=== PATIENT | male | born 1985 | race Caucasian/White ===

== ENCOUNTER → 2017-01-30 | Outpatient (CLI) | payer OTHER | END | disposition home or self-care (01) | LOC: LABWHC1 09:56 | PROVIDERS: ATTEND Psychiatry & Neurology Neurology | DX: Z51.81 Encounter for therapeutic drug level monitoring (principal); G40.109 Localization-related (focal) (partial) symptomatic epilepsy and epileptic syndromes with simple partial seizures, not intractable, without status epilepticus | CPT/HCPCS: 36415; 80177 ==

== ENCOUNTER 2017-07-29 22:17 | Emergency (ER) | payer OTHER ==
[2017-07-29] MEDS ORDERED: SODIUM CHLORIDE 0.9% 1,000 ML IV STA ×2 (22:48)
[2017-07-29] MEDS ORDERED: DEXAMETHASONE SOD PHOSPHATE 10 MG/ML 1 ML VIAL IV STA (22:49)
[2017-07-29] MEDS ORDERED: KETOROLAC 30 MG/ML 1 ML VIAL IVP STA (22:49)
[2017-07-29] MEDS ORDERED: METOCLOPRAMIDE 5 MG/ML 2 ML VIAL IVP STA (22:49)
[2017-07-29 23:01] LABS: Basophils % (A) 0 %; CH 31.2; CHCM 34.4; Eosinophils # (A) 0.1 k/uL (0-0.7); Eosinophils % (A) 1 %; HCT 43.2 % (39.0-53.0); HDW 2.18; HGB 14.7 gm/dL (13.0-17.5); Luc # (Auto) 0.11; Luc % (Auto) 1; Lymphocytes # (A) 1.9 k/uL (1.0-4.8); Lymphocytes % (A) 23 %; MCHC 34.1 g/dL (31.0-37.0); Mean Platelet Volume 8.4; Monocytes # (A) 0.6 k/uL (0-1.0); Monocytes % (A) 7 %; Neutrophils # (A) 5.5 k/uL (1.3-7.7); Neutrophils % (A) 67 %; RBC 4.74 m/uL (4.30-5.90); RDW 13.3 % (11.5-15.5); WBC 8.2 k/uL (3.8-10.6); WBC (Perox) 8.56
[2017-07-29 23:09] LABS: ALT 38 U/L (21-72); AST 41 U/L (17-59); Alkaline Phosphatase 79 U/L (38-126); Anion Gap 9 mmol/L; Blood Urea Nitrogen 18 mg/dL (9-20); Calcium 8.8 mg/dL (8.4-10.2); Carbon Dioxide 29 mmol/L (22-30); Chloride 98 mmol/L (98-107); Glucose 113 mg/dL (74-99); Magnesium 1.8 mg/dL (1.6-2.3); Non-African American GFR(MDRD) >60 (>60 ml/min/1.73 sqM); Phosphorous 3.7 mg/dL (2.5-4.5); Potassium 3.9 mmol/L (3.5-5.1); Sodium 136 mmol/L (137-145); Total Bilirubin 0.9 mg/dL (0.2-1.3); Total Protein 7.4 g/dL (6.3-8.2)
--- NOTE | 2017-07-29 23:09 | ED ---
Seizure HPI - General Chief Complaint: Seizure Stated Complaint: Seizure Time Seen by Provider: 07/29/17 22:43 Source: EMS Mode of arrival: EMS Limitations: altered mental status - History of Present Illness Initial Comments: This 31-year-old white male presents by EMS with seizures. His parents are present and relate that they witnessed seizure at home. He apparently was taking his legs and trying to crawl around. They state that he was banging his head against the small. They threw a blanket over on him and he seemed to struggle with this plan For a while. The seizure apparently lasted approximately 30 minutes. He then had another seizure while in route and the paramedics gave him 5 mg of Versed. He does have a long history of seizures ever since childhood. His last seizure was approximately 3 months ago. He does take his Keppra daily and has not missed any doses. He states that he does not drink alcohol too heavily and his last drink was 2 days ago. He is currently complaining of a diffuse headache. He denies any other injuries or complaints or modifying factors. - Related Data Home Medications Medication Instructions Recorded Confirmed Aspirin 325 - 650 mg PO DAILY PRN 07/29/17 07/29/17 levETIRAcetam [Keppra] 500 mg PO Q12HR 07/29/17 07/29/17 Allergies Allergy/AdvReac Type Severity Reaction Status Date / Time No Known Allergies Allergy Verified 07/29/17 22:39 Review of Systems ROS Statement: Those systems with pertinent positive or pertinent negative responses have been documented in the HPI. ROS Other: All systems not noted in ROS Statement are negative. Past Medical History Past Medical History: Seizure Disorder History of Any Multi-Drug Resistant Organisms: None Reported Past Surgical History: Orthopedic Surgery Past Psychological History: No Psychological Hx Reported Smoking Status: Current every day smoker Past Alcohol Use History: Occasional Past Drug Use History: Marijuana General Exam - General Exam Comments Initial Comments: GENERAL: The patient is well nourished and well hydrated. VITAL SIGNS: Heart rate, blood pressure, respiratory rate reviewed as recorded in nurse's notes. EYES: Pupils are round and reactive. Extraocular movements are intact. No conjunctival / lid redness or swelling. ENT: No external evidence of injury, swelling, or ecchymosis. Airway is patent. Throat is clear. NECK: Nontender. No swelling or evidence of injury. No subcutaneous emphysema. Trachea is midline. No thyroid mass. HEART: Regular rate and rhythm. Good peripheral pulses. LUNGS/CHEST: Breath sounds clear and equal bilaterally. No rales, rhonchi, or wheezes. No ecchymosis, subcutaneous emphysema, or tenderness. ABDOMEN: Abdomen soft without tenderness. No palpable masses or organomegaly. No peritoneal signs. No abdominal wall swelling or ecchymosis. EXTREMITIES: No extremity tenderness. Normal muscle tone and function. No thoracolumbar tenderness. NEUROLOGIC: Sensation is grossly intact. Cranial nerve exam reveals face is symmetrical, tongue is midline, speech is clear. SKIN: No abrasions or ecchymosis is noted. No induration or masses noted. PSYCHIATRIC: Alert and oriented. Appropriate behavior and judgment. Limitations: altered mental status Course Vital Signs 07/29/17 22:18 Temperature 97.6 F Pulse Rate 90 Respiratory 14 Rate Blood Pressure 126/83 O2 Sat by Pulse 100 Oximetry Medical Decision Making - Medical Decision Making The patient was seen and examined. All diagnostics were reviewed. An IV is started and he is hydrated. The EKG shows a normal sinus rhythm at a rate of 93. There is evidence of an incomplete right bundle-branch block. There is a AK interval of 144, QRS duration of 110, and QTc interval 489. The patient receives some Decadron, Toradol, and Reglan for his headache. The laboratory is reviewed and does not show any acute process. His computed tomography scan of the brain does not show any acute processes. His headache is resolved on recheck. He is in no distress feels well enough to be discharged home. It appears this may have been a breakthrough seizure. It is felt as though he should call his neurologist within the next day for further recommendations and close follow-up. - Lab Data Result diagrams: 07/29/17 22:30 07/29/17 22:30 Lab Results 07/29/17 07/29/17 Range/Units 22:30 22:30 WBC 8.2 (3.8-10.6) k/uL RBC 4.74 (4.30-5.90) m/uL Hgb 14.7 (13.0-17.5) gm/dL Hct 43.2 (39.0-53.0) % MCV 91.0 (80.0-100.0) fL MCH 31.0 (25.0-35.0) pg MCHC 34.1 (31.0-37.0) g/dL RDW 13.3 (11.5-15.5) % Plt Count 203 (150-450) k/uL Neutrophils % 67 % Lymphocytes % 23 % Monocytes % 7 % Eosinophils % 1 % Basophils % 0 % Neutrophils # 5.5 (1.3-7.7) k/uL Lymphocytes # 1.9 (1.0-4.8) k/uL Monocytes # 0.6 (0-1.0) k/uL Eosinophils # 0.1 (0-0.7) k/uL Basophils # 0.0 (0-0.2) k/uL Sodium 136 L (137-145) mmol/L Potassium 3.9 (3.5-5.1) mmol/L Chloride 98 (98-107) mmol/L Carbon Dioxide 29 (22-30) mmol/L Anion Gap 9 mmol/L BUN 18 (9-20) mg/dL Creatinine 1.00 (0.66-1.25) mg/dL Est GFR (MDRD) Af Amer >60 (>60 ml/min/1.73 sqM) Est GFR (MDRD) Non-Af >60 (>60 ml/min/1.73 sqM) Glucose 113 H (74-99) mg/dL Calcium 8.8 (8.4-10.2) mg/dL Phosphorus 3.7 (2.5-4.5) mg/dL Magnesium 1.8 (1.6-2.3) mg/dL Total Bilirubin 0.9 (0.2-1.3) mg/dL AST 41 (17-59) U/L ALT 38 (21-72) U/L Alkaline Phosphatase 79 (38-126) U/L Total Protein 7.4 (6.3-8.2) g/dL Albumin 4.5 (3.5-5.0) g/dL Disposition Clinical Impression: Recurrent seizures, Head injury, Headache Disposition: HOME SELF-CARE Condition: Good Instructions: Recurrent Seizures in Adults (ED), Acute Headache (ED), Head Injury (ED) Referrals: Daniel Rothman MD [Primary Care Provider] - 1-2 days Susana Escudero MD [STAFF PHYSICIAN] - 1-2 days Time of Disposition: 00:23
--- NOTE | 2017-07-30 00:12 | CT ---
EXAM: CT Head Without Intravenous Contrast CLINICAL HISTORY: Reason: seizure activity TECHNIQUE: Axial computed tomography images of the head/brain without intravenous contrast. DLP is 1047.10 mGy-cm. This CT exam was performed using one or more of the following dose reduction techniques: automated exposure control, adjustment of the mA and/or kV according to patient size, and/or use of iterative reconstruction technique. COMPARISON: MRI of the brain dated 05/07/[address] of the head dated 12/29/2014 FINDINGS: Brain: Unremarkable. No hemorrhage. No significant white matter disease. No edema. Ventricles: Unremarkable. No ventriculomegaly. Bones/joints: Unremarkable. No acute fracture. Soft tissues: Unremarkable. Sinuses: Minimal mucosal thickening is again seen involving the right sphenoid sinus. Mastoid air cells: Unremarkable as visualized. No mastoid effusion. IMPRESSION: No acute findings.
[2017-07-30 00:32] VITALS: BP 109/56; PULSE 68; RESP 16; TEMP 97.9
== END 2017-07-30 00:31 | disposition home or self-care (01) ==
LOC: EC 22:17
DX: S09.90XA Unspecified injury of head, initial encounter (principal); G40.909 Epilepsy, unspecified, not intractable, without status epilepticus; I45.10 Unspecified right bundle-branch block; F17.200 Nicotine dependence, unspecified, uncomplicated; Z79.899 Other long term (current) drug therapy; W22.01XA Walked into wall, initial encounter; Y92.009 Unspecified place in unspecified non-institutional (private) residence as the place of occurrence of the external cause
CPT/HCPCS: 36415; 93005; 80053; 83735; 84100; 85025; 70450; 99285; 96374; 96375 ×2; 96361 ×2; J1100; J2765; J1885

== ENCOUNTER → 2018-09-02 | Outpatient (CLI) | payer OTHER ==
--- NOTE | 2018-09-02 11:37 | MR ---
EXAMINATION TYPE: MR brain wo con DATE OF EXAM: 09/02/2018 COMPARISON: 05/07/2016 HISTORY: Epilepsy T1-weighted sagittal, T2, FLAIR, and diffusion axial, and T2 coronal coronal views of the brain are s ubmitted. There is no evidence of acute ischemia. The ventricles, basal cisterns, and sulci overlying the conv exities are consistent with the patient's age. There is no mass effect. Craniocervical junction maintained. Sella turcica has a normal appearance. No cerebellopontine angle mass. Changes of chronic sinusitis. IMPRESSION: 1. No acute intracranial process. 2. Mild changes of chronic sinusitis.
== END | disposition home or self-care (01) ==
LOC: RADMRIMAIN 08:48
PROVIDERS: ATTEND Psychiatry & Neurology Neurology
DX: G40.109 Localization-related (focal) (partial) symptomatic epilepsy and epileptic syndromes with simple partial seizures, not intractable, without status epilepticus (principal); J32.9 Chronic sinusitis, unspecified
CPT/HCPCS: 70551

== ENCOUNTER → 2019-08-20 | Outpatient (CLI) | payer OTHER | END | disposition home or self-care (01) | LOC: LABWHC1 10:36 | PROVIDERS: ATTEND Psychiatry & Neurology Neurology | DX: G40.109 Localization-related (focal) (partial) symptomatic epilepsy and epileptic syndromes with simple partial seizures, not intractable, without status epilepticus (principal) | CPT/HCPCS: 36415; 80177 ==

== ENCOUNTER → 2019-10-01 | Outpatient (CLI) | payer OTHER | END | disposition home or self-care (01) | LOC: LABWHC1 10:38 | PROVIDERS: ATTEND Psychiatry & Neurology Neurology | DX: G40.109 Localization-related (focal) (partial) symptomatic epilepsy and epileptic syndromes with simple partial seizures, not intractable, without status epilepticus (principal) | CPT/HCPCS: 36415; 80177 ==

== ENCOUNTER 2019-12-17 19:36 | Emergency (ER) | payer OTHER ==
[2019-12-17 19:42] VITALS: TEMP 99.2
[2019-12-17 19:42] LABS: Glucose,Whole Blood 152 mg/dL (75-99)
[2019-12-17] MEDS ORDERED: LORazepam 2 MG/ML INJ IV STA (19:46)
[2019-12-17] MEDS ORDERED: SODIUM CHLORIDE 0.9% 1,000 ML IV STA (19:46)
--- NOTE | 2019-12-17 19:49 | ED ---
General Adult HPI - General Chief complaint: Seizure Stated complaint: Seizure Time Seen by Provider: 12/17/19 19:39 Source: patient, family, EMS, RN notes reviewed Mode of arrival: ambulatory Limitations: no limitations - History of Present Illness Initial comments: Patient is a pleasant 33-year-old male presenting to the emergency department with family for seizure. Patient did have seizure prior to arrival lasting less than 5 minutes. Patient denies any injury however does admit that he may have quite as. Urinated himself. Patient does get several seizures a year, last was August. Patient has been having seizures since approximately age 9. Patient states he feels fine at this time and has no complaints. - Related Data Home Medications Medication Instructions Recorded Confirmed Aspirin 325 - 650 mg PO DAILY PRN 07/29/17 07/29/17 levETIRAcetam [Keppra] 500 mg PO Q12HR 07/29/17 07/29/17 Allergies Allergy/AdvReac Type Severity Reaction Status Date / Time No Known Allergies Allergy Verified 12/17/19 19:43 Review of Systems ROS Statement: Those systems with pertinent positive or pertinent negative responses have been documented in the HPI. ROS Other: All systems not noted in ROS Statement are negative. Constitutional: Denies: fever Eyes: Denies: eye pain ENT: Denies: ear pain Respiratory: Denies: cough Cardiovascular: Denies: chest pain Endocrine: Denies: fatigue Gastrointestinal: Denies: abdominal pain Genitourinary: Denies: dysuria Musculoskeletal: Denies: back pain Skin: Denies: rash Neurological: Denies: headache, weakness, confusion Past Medical History Past Medical History: Seizure Disorder History of Any Multi-Drug Resistant Organisms: None Reported Past Surgical History: Orthopedic Surgery Past Psychological History: No Psychological Hx Reported Smoking Status: Current every day smoker Past Alcohol Use History: Occasional Past Drug Use History: Marijuana General Exam Limitations: no limitations General appearance: alert, in no apparent distress Head exam: Present: normocephalic Eye exam: Present: normal appearance, PERRL, EOMI ENT exam: Present: other (Anterior left tongue abrasion) Neck exam: Present: normal inspection. Absent: tenderness Respiratory exam: Present: normal lung sounds bilaterally Cardiovascular Exam: Present: regular rate, normal rhythm GI/Abdominal exam: Present: soft. Absent: tenderness Extremities exam: Present: normal inspection Neurological exam: Present: alert, CN II-XII intact. Absent: motor sensory deficit Expanded Neurological exam: Present: protecting the airway Speech: Present: fluid speech Cranial nerves: EOM's Intact: Normal Motor strength exam: RUE: 5, LUE: 5, RLE: 5, LLE: 5 Eye Response: (4) open spontaneously Motor Response: (6) obeys commands Verbal Response: (5) oriented Psychiatric exam: Present: normal affect, normal mood Skin exam: Present: normal color Course Vital Signs 12/17/19 12/17/19 19:39 20:42 Temperature 99.2 F Pulse Rate 103 H 90 Respiratory 20 20 Rate Blood Pressure 143/86 119/76 O2 Sat by Pulse 95 98 Oximetry EKG Findings - EKG Comments: EKG Findings:: Normal sinus rhythm 96. FL 138. QRS 112. QT 372. QTC 469. Normal axis. Incomplete right bundle branch block. No acute ST change. Medical Decision Making - Medical Decision Making Patient reevaluated, states he feels better, symptom-free. Patient requesting discharge home. - Lab Data Result diagrams: 12/17/19 19:51 12/17/19 19:51 Lab Results 12/17/19 12/17/19 12/17/19 Range/Units 19:40 19:51 19:51 WBC 8.5 (3.8-10.6) k/uL RBC 4.86 (4.30-5.90) m/uL Hgb 14.4 (13.0-17.5) gm/dL Hct 44.1 (39.0-53.0) % MCV 90.8 (80.0-100.0) fL MCH 29.7 (25.0-35.0) pg MCHC 32.7 (31.0-37.0) g/dL RDW 12.0 (11.5-15.5) % Plt Count 243 (150-450) k/uL Neutrophils % 61 % Lymphocytes % 32 % Monocytes % 5 % Eosinophils % 1 % Basophils % 1 % Neutrophils # 5.2 (1.3-7.7) k/uL Lymphocytes # 2.7 (1.0-4.8) k/uL Monocytes # 0.4 (0-1.0) k/uL Eosinophils # 0.0 (0-0.7) k/uL Basophils # 0.0 (0-0.2) k/uL Sodium 139 (137-145) mmol/L Potassium 3.8 (3.5-5.1) mmol/L Chloride 102 (98-107) mmol/L Carbon Dioxide 22 (22-30) mmol/L Anion Gap 15 mmol/L BUN 18 (9-20) mg/dL Creatinine 1.12 (0.66-1.25) mg/dL Est GFR (CKD-EPI)AfAm >90 (>60 ml/min/1.73 sqM) Est GFR (CKD-EPI)NonAf 86 (>60 ml/min/1.73 sqM) Glucose 158 H (74-99) mg/dL POC Glucose (mg/dL) 152 H (75-99) mg/dL POC Glu Facility Planner ID Maria De Jesus Paulino Calcium 8.9 (8.4-10.2) mg/dL Total Bilirubin 1.2 (0.2-1.3) mg/dL AST 39 (17-59) U/L ALT 27 (4-49) U/L Alkaline Phosphatase 73 (38-126) U/L Total Protein 8.0 (6.3-8.2) g/dL Albumin 4.9 (3.5-5.0) g/dL Serum Alcohol <10 mg/dL Influenza Type A RNA (Not Detectd) Influenza Type B (PCR) (Not Detectd) 12/17/19 Range/Units 19:51 WBC (3.8-10.6) k/uL RBC (4.30-5.90) m/uL Hgb (13.0-17.5) gm/dL Hct (39.0-53.0) % MCV (80.0-100.0) fL MCH (25.0-35.0) pg MCHC (31.0-37.0) g/dL RDW (11.5-15.5) % Plt Count (150-450) k/uL Neutrophils % % Lymphocytes % % Monocytes % % Eosinophils % % Basophils % % Neutrophils # (1.3-7.7) k/uL Lymphocytes # (1.0-4.8) k/uL Monocytes # (0-1.0) k/uL Eosinophils # (0-0.7) k/uL Basophils # (0-0.2) k/uL Sodium (137-145) mmol/L Potassium (3.5-5.1) mmol/L Chloride (98-107) mmol/L Carbon Dioxide (22-30) mmol/L Anion Gap mmol/L BUN (9-20) mg/dL Creatinine (0.66-1.25) mg/dL Est GFR (CKD-EPI)AfAm (>60 ml/min/1.73 sqM) Est GFR (CKD-EPI)NonAf (>60 ml/min/1.73 sqM) Glucose (74-99) mg/dL POC Glucose (mg/dL) (75-99) mg/dL POC Glu Facility Planner ID Calcium (8.4-10.2) mg/dL Total Bilirubin (0.2-1.3) mg/dL AST (17-59) U/L ALT (4-49) U/L Alkaline Phosphatase (38-126) U/L Total Protein (6.3-8.2) g/dL Albumin (3.5-5.0) g/dL Serum Alcohol mg/dL Influenza Type A RNA Not Detected (Not Detectd) Influenza Type B (PCR) Not Detected (Not Detectd) Disposition Clinical Impression: Generalized seizure Disposition: HOME SELF-CARE Condition: Stable Instructions (If sedation given, give patient instructions): Recurrent Seizures in Adults (ED) Additional Instructions: Please follow-up with your neurologist and primary care physician either tomorrow or beginning of the week. Return for recurrent seizures, worsening symptoms or other concerns. Please have your doctor check keppra level that was drawn today. Is patient prescribed a controlled substance at d/c from ED?: No Referrals: Susana Escudero MD [STAFF PHYSICIAN] - 1-2 days Jose Manuel Lujan [STAFF PHYSICIAN] - 1-2 days Daniel Rothman MD [STAFF PHYSICIAN] - 1-2 days Time of Disposition: 20:56
[2019-12-17 20:08] LABS: Basophils % (A) 1 %; Eosinophils % (A) 1 %; HCT 44.1 % (39.0-53.0); HGB 14.4 gm/dL (13.0-17.5); Lymphocytes # (A) 2.7 k/uL (1.0-4.8); Lymphocytes % (A) 32 %; MCH 29.7 pg (25.0-35.0); MCHC 32.7 g/dL (31.0-37.0); MCV 90.8 fL (80.0-100.0); Mean Platelet Volume 7.7; Monocytes # (A) 0.4 k/uL (0-1.0); Monocytes % (A) 5 %; Neutrophils # (A) 5.2 k/uL (1.3-7.7); Neutrophils % (A) 61 %; Platelet Count 243 k/uL (150-450); RBC 4.86 m/uL (4.30-5.90); WBC 8.5 k/uL (3.8-10.6)
[2019-12-17 20:13] LABS: Appearance,Urine Clear (Clear); Bilirubin,Urine Negative (Negative); Blood,Urine Small (Negative); Color,Urine Yellow; Glucose,Urine (UA) Negative (Negative); Ketones,Urine 1+ (Negative); Leukocyte Esterase,Urine Moderate (Negative); Mucus,Urine Rare /hpf; Nitrite,Urine Negative (Negative); PH, Urine 5.5 (5.0-8.0); Protein,Urine 1+ (Negative); RBC,Urine 3 /hpf (0-5); Urobilinogen,Urine <2.0 mg/dL (<2.0); WBC,Urine 35 /hpf (0-5)
[2019-12-17 20:17] LABS: ALT 27 U/L (4-49); AST 39 U/L (17-59); African American GFR (CKD) >90 (>60 ml/min/1.73 sqM); Albumin 4.9 g/dL (3.5-5.0); Alcohol <10 mg/dL; Alkaline Phosphatase 73 U/L (38-126); Anion Gap 15 mmol/L; Blood Urea Nitrogen 18 mg/dL (9-20); Calcium 8.9 mg/dL (8.4-10.2); Carbon Dioxide 22 mmol/L (22-30); Chloride 102 mmol/L (98-107); Glucose 158 mg/dL (74-99); Non-African American GFR(CKD) 86 (>60 ml/min/1.73 sqM); Potassium 3.8 mmol/L (3.5-5.1); Sodium 139 mmol/L (137-145); Total Bilirubin 1.2 mg/dL (0.2-1.3)
[2019-12-17] MEDS ORDERED: levETIRAcetam 500 MG TAB PO STA (20:55)
--- NOTE | 2019-12-17 20:59 | XR ---
EXAMINATION: XR chest 2V DATE AND TIME: 12/17/2019 8:37 PM CLINICAL INDICATION: PHH; seizure TECHNIQUE: Departmental protocol COMPARISON: 03/25/2014 FINDINGS: The lungs are clear. The pleural spaces are negative. The cardiac silhouette is not enlarged. The remainder of the mediastinal silhouette is unremarkable. The skeletal structures and soft tissues are negative for acute findings. IMPRESSION: NO ACUTE PROCESS.
[2019-12-17 21:02] VITALS: BP 118/84; PULSE 78; RESP 18
== END 2019-12-17 22:16 | disposition home or self-care (01) ==
LOC: EC 19:36
DX: G40.409 Other generalized epilepsy and epileptic syndromes, not intractable, without status epilepticus (principal); F17.200 Nicotine dependence, unspecified, uncomplicated; Z79.82 Long term (current) use of aspirin; Z79.899 Other long term (current) drug therapy
CPT/HCPCS: 36415; 93005; 80053; 80177; 85025; 81001; 87086; 87502; 71046; 99284; 96374; 96361; G0480; J2060; 80320

== ENCOUNTER → 2020-01-06 | Outpatient (CLI) | payer OTHER | END | disposition home or self-care (01) | LOC: LABWHC1 10:35 | PROVIDERS: ATTEND Psychiatry & Neurology Neurology | DX: G40.109 Localization-related (focal) (partial) symptomatic epilepsy and epileptic syndromes with simple partial seizures, not intractable, without status epilepticus (principal) | CPT/HCPCS: 36415; 80177 ==

== ENCOUNTER → 2020-09-08 | Outpatient (CLI) | payer OTHER | END | disposition home or self-care (01) | LOC: LABWHC1 13:46 | PROVIDERS: ATTEND Psychiatry & Neurology Neurology | DX: G40.109 Localization-related (focal) (partial) symptomatic epilepsy and epileptic syndromes with simple partial seizures, not intractable, without status epilepticus (principal) | CPT/HCPCS: 36415; 80177 ==

== ENCOUNTER → 2020-12-06 | Outpatient (CLI) | payer MEDICARE, OTHER | END | disposition home or self-care (01) | LOC: LABWHC1 09:49 | PROVIDERS: ATTEND Psychiatry & Neurology Neurology | DX: G40.109 Localization-related (focal) (partial) symptomatic epilepsy and epileptic syndromes with simple partial seizures, not intractable, without status epilepticus (principal) | CPT/HCPCS: 36415; 80177 ==

== ENCOUNTER 2021-01-05 02:03 | Emergency (ER) | payer MEDICARE, OTHER ==
[2021-01-05 02:12] VITALS: RESP 18
[2021-01-05 02:33] LABS: Glucose,Whole Blood 111 mg/dL (75-99)
[2021-01-05 02:59] LABS: Basophils % (A) 1 %; Eosinophils # (A) 0.2 k/uL (0-0.7); Eosinophils % (A) 3 %; HGB 15.1 gm/dL (13.0-17.5); Lymphocytes # (A) 1.9 k/uL (1.0-4.8); Lymphocytes % (A) 31 %; MCH 30.1 pg (25.0-35.0); MCHC 33.5 g/dL (31.0-37.0); Mean Platelet Volume 7.2; Monocytes # (A) 0.4 k/uL (0-1.0); Monocytes % (A) 6 %; Neutrophils # (A) 3.6 k/uL (1.3-7.7); Neutrophils % (A) 57 %; Platelet Count 223 k/uL (150-450); RDW 12.4 % (11.5-15.5); WBC 6.2 k/uL (3.8-10.6)
[2021-01-05 03:04] LABS: African American GFR (CKD) >90 (>60 ml/min/1.73 sqM); Anion Gap 8 mmol/L; Blood Urea Nitrogen 19 mg/dL (9-20); Calcium 8.9 mg/dL (8.4-10.2); Carbon Dioxide 30 mmol/L (22-30); Chloride 100 mmol/L (98-107); Glucose 124 mg/dL (74-99); Non-African American GFR(CKD) >90 (>60 ml/min/1.73 sqM); Potassium 3.9 mmol/L (3.5-5.1); Sodium 138 mmol/L (137-145)
[2021-01-05] MEDS ORDERED: ASPIRIN-ACET-CAFF 250-250-65MG 1 EACH TAB PO ONE (03:30)
[2021-01-05 03:33] VITALS: BP 127/85; PULSE 88; TEMP 98.6
--- NOTE | 2021-01-05 03:53 | ED ---
Seizure HPI - General Chief Complaint: Seizure Stated Complaint: seizure Time Seen by Provider: 01/05/21 02:30 Source: patient, EMS Mode of arrival: EMS Limitations: no limitations - History of Present Illness Initial Comments: This patient is a 35-year-old man who presents to be evaluated following a seizure. The patient does have known seizure disorder and is currently taking Keppra. He denies missing any doses of his medication. He comes today mainly for evaluation of his left brow to make sure that he does not need stitches. The patient reportedly rolled from the bed and struck the left side of his face when he fell. Patient denies headache. There is no neck pain. He does not have any neurologic symptoms and feels he is back at his baseline. The patient's does agree. Patient states that his last tetanus shot was probably about 3 years ago after a cat bite. MD Complaint: seizure -: minutes(s) Description of Episode: loss of consciousness, tonic-clonic movement -: second(s) Witnessed: yes - by bystander Trauma: Yes Seizure History: known seizure disorder Place: home Treatments Prior to Arrival: none - Related Data Home Medications Medication Instructions Recorded Confirmed Aspirin 325 - 650 mg PO DAILY PRN 07/29/17 07/29/17 levETIRAcetam [Keppra] 500 mg PO Q12HR 07/29/17 07/29/17 Allergies Allergy/AdvReac Type Severity Reaction Status Date / Time No Known Allergies Allergy Verified 12/17/19 19:43 Review of Systems ROS Statement: Those systems with pertinent positive or pertinent negative responses have been documented in the HPI. ROS Other: All systems not noted in ROS Statement are negative. Constitutional: Denies: fever, chills, weakness Eyes: Reports: as per HPI, eye pain. Denies: vision change ENT: Denies: hearing loss, epistaxis Respiratory: Denies: cough, dyspnea Cardiovascular: Denies: chest pain, palpitations, syncope Gastrointestinal: Denies: abdominal pain, vomiting, diarrhea Genitourinary: Denies: dysuria, hematuria Musculoskeletal: Denies: back pain, myalgia Skin: Denies: rash Neurological: Denies: headache, weakness, numbness, paresthesias Hematological/Lymphatic: Denies: easy bleeding Past Medical History Past Medical History: Seizure Disorder History of Any Multi-Drug Resistant Organisms: None Reported Past Surgical History: Orthopedic Surgery Past Psychological History: No Psychological Hx Reported Smoking Status: Current every day smoker Past Alcohol Use History: Occasional Past Drug Use History: Marijuana General Exam Limitations: no limitations General appearance: alert, in no apparent distress Head exam: Present: normocephalic Eye exam: Present: normal appearance, PERRL, EOMI, periorbital swelling, other (Patient has an approximately 2-3 mm laceration to the left upper eyelid which is well approximated.). Absent: scleral icterus, conjunctival injection, nystagmus ENT exam: Present: normal oropharynx Neck exam: Present: normal inspection, full ROM. Absent: tenderness, meningismus Respiratory exam: Present: normal lung sounds bilaterally. Absent: respiratory distress, wheezes, rales, rhonchi, stridor, chest wall tenderness Cardiovascular Exam: Present: regular rate, normal rhythm, normal heart sounds. Absent: systolic murmur, diastolic murmur, rubs, gallop GI/Abdominal exam: Present: soft. Absent: distended, tenderness, guarding, rebound, rigid, mass Extremities exam: Present: normal inspection, normal capillary refill. Absent: pedal edema, calf tenderness Back exam: Present: normal inspection. Absent: CVA tenderness (R), CVA tenderness (L) Neurological exam: Present: alert, oriented X3, CN II-XII intact. Absent: motor sensory deficit Psychiatric exam: Present: normal affect Skin exam: Present: warm, dry, intact, normal color. Absent: rash Course Vital Signs 01/05/21 01/05/21 02:04 03:32 Temperature 98.8 F 98.6 F Pulse Rate 90 88 Respiratory 18 18 Rate Blood Pressure 148/95 127/85 O2 Sat by Pulse 98 98 Oximetry Medical Decision Making - Medical Decision Making Patient is a 35-year-old man with seizure disorder who did have one breakthrough seizure but nontoxic, located and now back at baseline. He does have very s uperficial small laceration to left eyelid which is not requiring repair. Patient is stable for follow-up with his neurologist, Dr. Escudero. Discussed return parameters. - Lab Data Result diagrams: 01/05/21 02:38 01/05/21 02:38 Lab Results 01/05/21 01/05/21 01/05/21 Range/Units 02:31 02:38 02:38 WBC 6.2 (3.8-10.6) k/uL RBC 5.00 (4.30-5.90) m/uL Hgb 15.1 (13.0-17.5) gm/dL Hct 45.0 (39.0-53.0) % MCV 90.0 (80.0-100.0) fL MCH 30.1 (25.0-35.0) pg MCHC 33.5 (31.0-37.0) g/dL RDW 12.4 (11.5-15.5) % Plt Count 223 (150-450) k/uL MPV 7.2 Neutrophils % 57 % Lymphocytes % 31 % Monocytes % 6 % Eosinophils % 3 % Basophils % 1 % Neutrophils # 3.6 (1.3-7.7) k/uL Lymphocytes # 1.9 (1.0-4.8) k/uL Monocytes # 0.4 (0-1.0) k/uL Eosinophils # 0.2 (0-0.7) k/uL Basophils # 0.0 (0-0.2) k/uL Sodium 138 (137-145) mmol/L Potassium 3.9 (3.5-5.1) mmol/L Chloride 100 (98-107) mmol/L Carbon Dioxide 30 (22-30) mmol/L Anion Gap 8 mmol/L BUN 19 (9-20) mg/dL Creatinine 0.83 (0.66-1.25) mg/dL Est GFR (CKD-EPI)AfAm >90 (>60 ml/min/1.73 sqM) Est GFR (CKD-EPI)NonAf >90 (>60 ml/min/1.73 sqM) Glucose 124 H (74-99) mg/dL POC Glucose (mg/dL) 111 H (75-99) mg/dL POC Glu Track Maintainer ID Preeti Moss Calcium 8.9 (8.4-10.2) mg/dL Disposition Clinical Impression: Generalized seizure, Periorbital contusion of left eye Disposition: HOME SELF-CARE Condition: Good Instructions (If sedation given, give patient instructions): Recurrent Seizures in Adults (ED) Is patient prescribed a controlled substance at d/c from ED?: No Referrals: Daniel Rothman MD [Primary Care Provider] - 1-2 days
== END 2021-01-05 04:00 | disposition home or self-care (01) ==
LOC: EC 02:03
DX: S01.112A Laceration without foreign body of left eyelid and periocular area, initial encounter (principal); G40.909 Epilepsy, unspecified, not intractable, without status epilepticus; F17.200 Nicotine dependence, unspecified, uncomplicated; Z79.899 Other long term (current) drug therapy; W06.XXXA Fall from bed, initial encounter
CPT/HCPCS: 36415; 80048; 80177; 85025; 99284

== ENCOUNTER → 2021-05-15 | Outpatient (CLI) | payer MEDICARE, OTHER | END | disposition home or self-care (01) | LOC: LABWHC1 10:52 | PROVIDERS: ATTEND Psychiatry & Neurology Neurology | DX: G40.109 Localization-related (focal) (partial) symptomatic epilepsy and epileptic syndromes with simple partial seizures, not intractable, without status epilepticus (principal) | CPT/HCPCS: 36415; 80177 ==

== ENCOUNTER 2021-07-21 19:21 | Emergency (ER) | payer MEDICARE, OTHER ==
[2021-07-21 19:30] VITALS: RESP 18
[2021-07-21] MEDS ORDERED: levETIRAcetam IV 1,000 MG in SALINE 1 100ML.BAG IVPB STA (19:58)
--- NOTE | 2021-07-21 20:07 | ED ---
General Adult HPI - General Chief complaint: Seizure Stated complaint: Seizure Time Seen by Provider: 07/21/21 19:41 Source: patient, EMS Mode of arrival: EMS Limitations: no limitations - History of Present Illness Initial comments: Dictation was produced using [employer] dictation software. please excuse any grammatical, word or spelling errors. Chief Complaint: 35-year-old male with past medical history of seizure disorder presents with seizure History of Present Illness: 35-year-old male he is was brought to the emergency department for having a seizure. Patient has seizure disorder and takes Keppra daily. Patient thinks he may forgot his dose earlier today. Patient denies any complaints at this time. He reports that his last seizure was a couple months ago. The ROS documented in this emergency department record has been reviewed and confirmed by me. Those systems with pertinent positive or negative responses have been documented in the HPI. All other systems are other negative and/or noncontributory. PHYSICAL EXAM: General Impression: Alert and oriented x3, not in acute distress HEENT: Normocephalic atraumatic, extra-ocular movements intact, pupils equal and reactive to light bilaterally, mucous membranes moist. Cardiovascular: Heart regular rate and rhythm Chest: Able to complete full sentences, no retractions, no tachypnea Abdomen: abdomen soft, non-tender, non-distended, no organomegaly Musculoskeletal: Pulses present and equal in all extremities, no peripheral edema Motor: no focal deficits noted Neurological: CN II-XII grossly intact, no focal motor or sensory deficits noted Skin: Intact with no visualized rashes Psych: Normal affect and mood ED course: 35-year-old well-appearing male with history of seizure disorder takes daily Keppra presents to the emergency department after seizure. He states that he may have missed a couple doses recently. Vital signs upon arrival are within acceptable limits. Patient's well-appearing at bedside. His physical examination is benign. Laboratory evaluation obtained. CBC is unremarkable. Metabolic panel shows potassium 3.1. Calcium of 7.7. Patient given oral potassium and oral calcium. Patient loaded with 1 g of Keppra. Patient observed in emergency department for approximately 1 hour 30 minutes found to be stable medical condition. Patient be discharged. He is advised follow-up with his neurologist Dr. Escudero - Related Data Home Medications Medication Instructions Recorded Confirmed levETIRAcetam [Keppra] 500 mg PO BID 07/29/17 07/21/21 levETIRAcetam [Keppra] 1,000 mg PO BID 07/21/21 07/21/21 Allergies Allergy/AdvReac Type Severity Reaction Status Date / Time No Known Allergies Allergy Verified 07/21/21 20:12 Review of Systems ROS Statement: Those systems with pertinent positive or pertinent negative responses have been documented in the HPI. ROS Other: All systems not noted in ROS Statement are negative. Past Medical History Past Medical History: Seizure Disorder History of Any Multi-Drug Resistant Organisms: None Reported Past Surgical History: Orthopedic Surgery Past Psychological History: No Psychological Hx Reported Smoking Status: Current every day smoker Past Alcohol Use History: Occasional Past Drug Use History: Marijuana General Exam Limitations: no limitations Course Vital Signs 07/21/21 19:24 Temperature 99.2 F Pulse Rate 93 Respiratory 18 Rate Blood Pressure 143/96 O2 Sat by Pulse 96 Oximetry Medical Decision Making - Lab Data Result diagrams: 07/21/21 19:56 07/21/21 19:56 Lab Results 07/21/21 07/21/21 Range/Units 19:56 19:56 WBC 6.0 (3.8-10.6) k/uL RBC 4.70 (4.30-5.90) m/uL Hgb 14.7 (13.0-17.5) gm/dL Hct 43.1 (39.0-53.0) % MCV 91.8 (80.0-100.0) fL MCH 31.2 (25.0-35.0) pg MCHC 34.0 (31.0-37.0) g/dL RDW 12.8 (11.5-15.5) % Plt Count 230 (150-450) k/uL MPV 7.5 Neutrophils % 62 % Lymphocytes % 28 % Monocytes % 4 % Eosinophils % 2 % Basophils % 1 % Neutrophils # 3.7 (1.3-7.7) k/uL Lymphocytes # 1.7 (1.0-4.8) k/uL Monocytes # 0.3 (0-1.0) k/uL Eosinophils # 0.1 (0-0.7) k/uL Basophils # 0.0 (0-0.2) k/uL Sodium 138 (137-145) mmol/L Potassium 3.1 L (3.5-5.1) mmol/L Chloride 109 H (98-107) mmol/L Carbon Dioxide 24 (22-30) mmol/L Anion Gap 5 mmol/L BUN 6 L (9-20) mg/dL Creatinine 0.64 L (0.66-1.25) mg/dL Est GFR (CKD-EPI)AfAm >90 (>60 ml/min/1.73 sqM) Est GFR (CKD-EPI)NonAf >90 (>60 ml/min/1.73 sqM) Glucose 166 H (74-99) mg/dL Calcium 7.7 L (8.4-10.2) mg/dL Disposition Clinical Impression: Seizure Disposition: HOME SELF-CARE Condition: Good Instructions (If sedation given, give patient instructions): Recurrent Seizures in Adults (ED) Additional Instructions: Follow-up with your seizure specialist Is patient prescribed a controlled substance at d/c from ED?: No Referrals: Daniel Rothman MD [Primary Care Provider] - 1-2 days
[2021-07-21 20:08] LABS: Basophils % (A) 1 %; Eosinophils # (A) 0.1 k/uL (0-0.7); Eosinophils % (A) 2 %; HCT 43.1 % (39.0-53.0); HGB 14.7 gm/dL (13.0-17.5); Lymphocytes # (A) 1.7 k/uL (1.0-4.8); Lymphocytes % (A) 28 %; MCH 31.2 pg (25.0-35.0); MCV 91.8 fL (80.0-100.0); Mean Platelet Volume 7.5; Monocytes # (A) 0.3 k/uL (0-1.0); Monocytes % (A) 4 %; Neutrophils # (A) 3.7 k/uL (1.3-7.7); Neutrophils % (A) 62 %; Platelet Count 230 k/uL (150-450); RDW 12.8 % (11.5-15.5)
[2021-07-21 20:23] LABS: African American GFR (CKD) >90 (>60 ml/min/1.73 sqM); Anion Gap 5 mmol/L; Blood Urea Nitrogen 6 mg/dL (9-20); Calcium 7.7 mg/dL (8.4-10.2); Carbon Dioxide 24 mmol/L (22-30); Chloride 109 mmol/L (98-107); Glucose 166 mg/dL (74-99); Non-African American GFR(CKD) >90 (>60 ml/min/1.73 sqM); Potassium 3.1 mmol/L (3.5-5.1); Sodium 138 mmol/L (137-145)
[2021-07-21 21:08] VITALS: BP 128/88; PULSE 77; TEMP 98.9
== END 2021-07-21 21:00 | disposition home or self-care (01) ==
LOC: EC 19:21
DX: R56.9 Unspecified convulsions (principal); F17.200 Nicotine dependence, unspecified, uncomplicated
CPT/HCPCS: 99285; 96374; 36415; 80048; 85025; J1953

== ENCOUNTER → 2021-07-28 | Outpatient (CLI) | payer MEDICARE, OTHER | END | disposition home or self-care (01) | LOC: LABWHC1 09:53 | PROVIDERS: ATTEND Psychiatry & Neurology Neurology | DX: G40.109 Localization-related (focal) (partial) symptomatic epilepsy and epileptic syndromes with simple partial seizures, not intractable, without status epilepticus (principal) | CPT/HCPCS: 36415; 80177 ==

== ENCOUNTER → 2021-10-30 | Outpatient (CLI) | payer MEDICARE, OTHER | END | disposition home or self-care (01) | LOC: LABWHC1 10:31 | PROVIDERS: ATTEND Psychiatry & Neurology Neurology | DX: G40.919 Epilepsy, unspecified, intractable, without status epilepticus (principal) | CPT/HCPCS: 36415; 80177 ==

== ENCOUNTER → 2022-02-28 | Outpatient (CLI) | payer MEDICARE, OTHER ==
[2022-03-01 07:29] LABS: Levetiracetam (Keppra) 17.8 ug/mL (3.0-60.0)
== END | disposition home or self-care (01) ==
LOC: LABWHC1 09:47
PROVIDERS: ATTEND Psychiatry & Neurology Neurology
DX: G40.109 Localization-related (focal) (partial) symptomatic epilepsy and epileptic syndromes with simple partial seizures, not intractable, without status epilepticus (principal)
CPT/HCPCS: 36415; 80177; 80235

== ENCOUNTER → 2022-09-25 | Outpatient (CLI) | payer MEDICARE, OTHER ==
[2022-09-26 09:10] LABS: Levetiracetam (Keppra) 18.6 ug/mL (3.0-60.0)
== END | disposition home or self-care (01) ==
LOC: LABWHC1 10:30
PROVIDERS: ATTEND Psychiatry & Neurology Neurology
DX: G40.109 Localization-related (focal) (partial) symptomatic epilepsy and epileptic syndromes with simple partial seizures, not intractable, without status epilepticus (principal)
CPT/HCPCS: 36415; 80177; 80235

== ENCOUNTER → 2022-09-27 | Outpatient (CLI) | payer MEDICARE, OTHER ==
[2022-09-27 23:07] LABS: ALT 54 U/L (10-49); AST 40 U/L (14-35)
== END | disposition home or self-care (01) ==
LOC: LABWHC1 15:05
PROVIDERS: ATTEND Psychiatry & Neurology Neurology
DX: G40.109 Localization-related (focal) (partial) symptomatic epilepsy and epileptic syndromes with simple partial seizures, not intractable, without status epilepticus (principal)
CPT/HCPCS: 36415; 84450; 84460

== ENCOUNTER 2022-12-17 11:09 | Emergency (ER) | payer MEDICARE, OTHER ==
[2022-12-17 11:17] VITALS: BP 144/88; PULSE 100; RESP 17; TEMP 98.2
[2022-12-17] MEDS ORDERED: SODIUM CHLORIDE 0.9% 500 ML 500 ML IV STA (11:37)
[2022-12-17 11:53] LABS: Basophils % (A) 0 %; Eosinophils % (A) 0 %; HCT 45.1 % (39.0-53.0); HGB 14.9 gm/dL (13.0-17.5); Lymphocytes # (A) 0.9 k/uL (1.0-4.8); Lymphocytes % (A) 17 %; MCH 29.5 pg (25.0-35.0); MCHC 33.1 g/dL (31.0-37.0); MCV 88.9 fL (80.0-100.0); Mean Platelet Volume 7.6; Monocytes # (A) 0.2 k/uL (0-1.0); Monocytes % (A) 4 %; Neutrophils % (A) 76 %; Platelet Count 243 k/uL (150-450); RBC 5.07 m/uL (4.30-5.90); RDW 12.6 % (11.5-15.5); WBC 5.2 k/uL (3.8-10.6)
[2022-12-17 12:14] LABS: ALT 30 U/L (4-49); AST 31 U/L (17-59); African American GFR (CKD) >90 (>60 ml/min/1.73 sqM); Albumin 4.8 g/dL (3.5-5.0); Alcohol <10 mg/dL; Alkaline Phosphatase 65 U/L (38-126); Anion Gap 10 mmol/L; Blood Urea Nitrogen 11 mg/dL (9-20); Calcium 8.7 mg/dL (8.4-10.2); Carbon Dioxide 31 mmol/L (22-30); Chloride 100 mmol/L (98-107); Glucose 150 mg/dL (74-99); Magnesium 1.9 mg/dL (1.6-2.3); Non-African American GFR(CKD) >90 (>60 ml/min/1.73 sqM); Potassium 4.5 mmol/L (3.5-5.1); Sodium 141 mmol/L (137-145); Total Bilirubin 1.2 mg/dL (0.2-1.3); Total Protein 7.8 g/dL (6.3-8.2)
[2022-12-17 12:29] LABS: Amphetamine Screen,Urine Not Detected (NotDetected); Barbiturate Screen,Urine Not Detected (NotDetected); Benzodiazepines Screen,Urine Not Detected (NotDetected); Cocaine Screen,Urine Not Detected (NotDetected); Methadone Screen, Urine Not Detected (NotDetected); Opiate Screen,Urine Not Detected (NotDetected); Oxycodone Screen, Urine Not Detected (NotDetected); Phencyclidine Screen,Urine Not Detected (NotDetected); Tricyclic Antidepressant,Urine Not Detected (NotDetected); Urn Cannabinoid Scrn Not Detected (NotDetected)
--- NOTE | 2022-12-17 14:49 | ED ---
General Adult HPI - General Source: patient, EMS, RN notes reviewed Mode of arrival: EMS Limitations: no limitations <Ryan Donovan - Last Filed: 12/17/22 15:08> <Ariel Escalante - Last Filed: 12/17/22 16:31> - General Chief complaint: Seizure Stated complaint: Seizure Time Seen by Provider: 12/17/22 11:14 - History of Present Illness Initial comments: 36-year-old male presents emergency department via EMS after a seizure. Patient reportedly had 2 seizures today. Patient states that he has recurrent seizures he states he sees Dr. Escudero neurology in which she is on Keppra. Patient has recent medication change in which they decreased his Keppra. Patient states he has no complains currently denies any tongue lacerations no head injury no loss conscious. While being picked up by EMS and in emergency department patient infiltration states that he does not want to live like this anymore he denies being suicidal homicidal currently he states he only said this because he is frustrated with his seizures. (Ryan Donovan) - Related Data Home Medications Medication Instructions Recorded Confirmed levETIRAcetam [Keppra] 750 mg PO BID 12/17/22 12/17/22 Allergies Allergy/AdvReac Type Severity Reaction Status Date / Time No Known Allergies Allergy Verified 12/17/22 14:45 Review of Systems ROS Other: All systems not noted in ROS Statement are negative. <Ryan Donovan - Last Filed: 12/17/22 15:08> ROS Other: All systems not noted in ROS Statement are negative. <Ariel Escalante - Last Filed: 12/17/22 16:31> ROS Statement: Those systems with pertinent positive or pertinent negative responses have been documented in the HPI. Past Medical History Past Medical History: Seizure Disorder History of Any Multi-Drug Resistant Organisms: None Reported Past Surgical History: Orthopedic Surgery Past Psychological History: No Psychological Hx Reported Smoking Status: Current some day smoker, Vaper Past Alcohol Use History: Occasional Past Drug Use History: Marijuana <Ryan Donovan - Last Filed: 12/17/22 15:08> General Exam Limitations: no limitations General appearance: alert, in no apparent distress Head exam: Present: atraumatic, normocephalic, normal inspection Eye exam: Present: normal appearance, PERRL, EOMI. Absent: scleral icterus, conjunctival injection, periorbital swelling ENT exam: Present: normal exam, normal oropharynx, mucous membranes moist Neck exam: Present: normal inspection. Absent: tenderness, meningismus, lymphadenopathy Respiratory exam: Present: normal lung sounds bilaterally. Absent: respiratory distress, wheezes, rales, rhonchi, stridor Cardiovascular Exam: Present: regular rate, normal rhythm, normal heart sounds. Absent: systolic murmur, diastolic murmur, rubs, gallop, clicks <Ryan Donovan - Last Filed: 12/17/22 15:08> Course Vital Signs 12/17/22 11:11 Temperature 98.2 F Pulse Rate 100 Respiratory 17 Rate Blood Pressure 144/88 O2 Sat by Pulse 97 Oximetry EKG Findings - EKG Comments: EKG Findings:: EKG performed at 11:55 sinus rhythm rate of 73 OK 150 course 116 QT/QTC 373/399 - EKG Results: EKG: interpreted by ERMD <Ryan Donovan - Last Filed: 12/17/22 15:08> Medical Decision Making - Lab Data Result diagrams: 12/17/22 11:41 12/17/22 11:41 <Ryan Donovan - Last Filed: 12/17/22 15:08> - Lab Data Result diagrams: 12/17/22 11:41 12/17/22 11:41 <Ariel Escalante - Last Filed: 12/17/22 16:31> - Medical Decision Making Was pt. sent in by a medical professional or institution (, PA, PARCEL POST ORDER CLERK, urgent care, hospital, or shelter...) When possible be specific @ -No Did you speak to anyone other than the patient for history (EMS, parent, family, police, friend...)? What history was obtained from this source @ -EMS provided the hospital care and treatment Did you review nursing and triage notes (agree or disagree)? Why? @ -I reviewed and agree with nursing and triage notes Were old charts reviewed (outside hosp., previous admission, EMS record, old EKG, old radiological studies, urgent care reports/EKG's, shelter records)? Report findings @ -No old charts were reviewed Differential Diagnosis (chest pain, altered mental status, abdominal pain women, abdominal pain men, vaginal bleeding, weakness, fever, dyspnea, syncope, headache, dizziness, GI bleed, back pain, seizure, CVA, palpatations, mental h ealth)? @ -Differential Seizure: Recurrent seizure disorder, febrile seizure, alcohol withdrawal, stimulants, meningitis, encephalitis, intercranial hemorrhage, intracranial tumor, stroke, eclampsia, thyrotoxicosis, hypocalcemia, hyponatremia, hypernatremia, hypomagnesemia, psychogenic, this is not meant to be an all-inclusive list. ] EKG interpreted by me (3pts min.). @ -As above X-rays interpreted by me (1pt min.). @ -None done CT interpreted by me (1pt min.). @ -None done U/S interpreted by me (1pt. min.). @ -None done What testing was considered but not performed or refused? (CT, X-rays, U/S, labs)? Why? @ -None What meds were considered but not given or refused? Why? @ -None Did you discuss the management of the patient with other professionals (professionals i.e. , PA, PARCEL POST ORDER CLERK, lab, RT, psych nurse, social science manager, box office clerk, teacher, information technology officer, residential case manager)? Give summary @ -Psychiatric nurse for evaluation of depression, suicidal ideation Was smoking cessation discussed for >3mins.? @ -No Was critical care preformed (if so, how long)? @ -No Were there social determinants of health that impacted care today? How? (Homelessness, low income, unemployed, alcoholism, drug addiction, transportation, low edu. Level, literacy, decrease access to med. care, [facility], rehab)? @ -No Was there de-escalation of care discussed even if they declined (Discuss DNR or withdrawal of care, Hospice)? DNR status @ -No What co-morbidities impacted this encounter? (DM, HTN, Smoking, COPD, CAD, Cancer, CVA, ARF, Chemo, Hep., AIDS, mental health diagnosis, sleep apnea, morbid obesity)? @ -None Was patient admitted / discharged? Hospital course, mention meds given and route, prescriptions, significant lab abnormalities, going to OR and other pertinent info. @ -Patient had labs, EKG with no acute findings. Patient has chronic seizures with exacerbation may be worsened by recent medication dose changes in which she was decrease to 750 mg twice daily patient may statements about suicidal ideation. Patient is pending psychiatric evaluation. Case transferred to Dr. Escalante Undiagnosed new problem with uncertain prognosis? @ -No Drug Therapy requiring intensive monitoring for toxicity (Heparin, Nitro, Insulin, Cardizem)? @ -No Were any procedures done? @ -No Diagnosis/symptom? @ -Seizure Acute, or Chronic, or Acute on Chronic? @ -Acute on chronic Uncomplicated (without systemic symptoms) or Complicated (systemic symptoms)? @ -Uncomplicated Side effects of treatment? @ -No Exacerbation, Progression, or Severe Exacerbation? @ -No Poses a threat to life or bodily function? How? (Chest pain, USA, GA, pneumonia, PE, COPD, DKA, ARF, appy, cholecystitis, CVA, Diverticulitis, Homicidal, Suicidal, threat to staff... and all critical care pts) @ -No (Ryan Donovan) Was patient admitted / discharged? Hospital course, mention meds given and route, prescriptions, significant lab abnormalities, going to OR and other pertinent info. @ -EPS evaluated the patient patient denied any suicidal ideations and EPS evaluated the patient and determined with the psychiatrist that the patient would be safe to be discharged home Undiagnosed new problem with uncertain prognosis? @ -No Drug Therapy requiring intensive monitoring for toxicity (Heparin, Nitro, Insulin, Cardizem)? @ -No Were any procedures done? @ -No Diagnosis/symptom? @ -Seizure Acute, or Chronic, or Acute on Chronic? @ -It on chronic Uncomplicated (without systemic symptoms) or Complicated (systemic symptoms)? @ -default Side effects of treatment? @ -No Exacerbation, Progression, or Severe Exacerbation? @ -No Poses a threat to life or bodily function? How? (Chest pain, USA, GA, pneumonia, PE, COPD, DKA, ARF, appy, cholecystitis, CVA, Diverticulitis, Homicidal, Suicidal, threat to staff... and all critical care pts) @ -No Diagnosis/symptom? @ -Situational depression Acute, or Chronic, or Acute on Chronic? @ -Acute Uncomplicated (without systemic symptoms) or Complicated (systemic symptoms)? @ -default Side effects of treatment? @ -none Exacerbation, Progression, or Severe Exacerbation] @ -no Poses a threat to life or bodily function? @ -no (Ariel Escalante) - Lab Data Lab Results 12/17/22 12/17/22 12/17/22 Range/Units 11:41 11:41 11:41 WBC 5.2 (3.8-10.6) k/uL RBC 5.07 (4.30-5.90) m/uL Hgb 14.9 (13.0-17.5) gm/dL Hct 45.1 (39.0-53.0) % MCV 88.9 (80.0-100.0) fL MCH 29.5 (25.0-35.0) pg MCHC 33.1 (31.0-37.0) g/dL RDW 12.6 (11.5-15.5) % Plt Count 243 (150-450) k/uL MPV 7.6 Neutrophils % 76 % Lymphocytes % 17 % Monocytes % 4 % Eosinophils % 0 % Basophils % 0 % Neutrophils # 4.0 (1.3-7.7) k/uL Lymphocytes # 0.9 L (1.0-4.8) k/uL Monocytes # 0.2 (0-1.0) k/uL Eosinophils # 0.0 (0-0.7) k/uL Basophils # 0.0 (0-0.2) k/uL Sodium 141 (137-145) mmol/L Potassium 4.5 (3.5-5.1) mmol/L Chloride 100 (98-107) mmol/L Carbon Dioxide 31 H (22-30) mmol/L Anion Gap 10 mmol/L BUN 11 (9-20) mg/dL Creatinine 0.74 (0.66-1.25) mg/dL Est GFR (CKD-EPI)AfAm >90 (>60 ml/min/1.73 sqM) Est GFR (CKD-EPI)NonAf >90 (>60 ml/min/1.73 sqM) Glucose 150 H (74-99) mg/dL Calcium 8.7 (8.4-10.2) mg/dL Magnesium 1.9 (1.6-2.3) mg/dL Total Bilirubin 1.2 (0.2-1.3) mg/dL AST 31 (17-59) U/L ALT 30 (4-49) U/L Alkaline Phosphatase 65 (38-126) U/L Total Protein 7.8 (6.3-8.2) g/dL Albumin 4.8 (3.5-5.0) g/dL Urine Opiates Screen Not Detected (NotDetected) Ur Oxycodone Screen Not Detected (NotDetected) Urine Methadone Screen Not Detected (NotDetected) Ur Propoxyphene Screen Not Detected (NotDetected) Ur Barbiturates Screen Not Detected (NotDetected) U Tricyclic Antidepress Not Detected (NotDetected) Ur Phencyclidine Scrn Not Detected (NotDetected) Ur Amphetamines Screen Not Detected (NotDetected) U Methamphetamines Scrn Not Detected (NotDetected) U Benzodiazepines Scrn Not Detected (NotDetected) Urine Cocaine Screen Not Detected (NotDetected) U Marijuana (THC) Screen Not Detected (NotDetected) Serum Alcohol <10 mg/dL Disposition Is patient prescribed a controlled substance at d/c from ED?: No <Ryan Donovan - Last Filed: 12/17/22 15:08> Is patient prescribed a controlled substance at d/c from ED?: No Time of Disposition: 16:30 <Ariel Escalante - Last Filed: 12/17/22 16:31> Clinical Impression: Generalized seizure, Situational depression Disposition: HOME SELF-CARE Condition: Good Instructions (If sedation given, give patient instructions): Seizure/Epilepsy Discharge Instructions & Follow-Up, Depression (ED) Referrals: Sagar Serrato MD [Primary Care Provider] - 1-2 days
== END 2022-12-17 17:04 | disposition home or self-care (01) ==
LOC: EC 11:09
DX: G40.309 Generalized idiopathic epilepsy and epileptic syndromes, not intractable, without status epilepticus (principal); F32.A Depression, unspecified; F17.290 Nicotine dependence, other tobacco product, uncomplicated; F12.90 Cannabis use, unspecified, uncomplicated
CPT/HCPCS: 82075; 36415; 93005; 80053; 80177; 83735; 85025; 80306; 99284; G0480; 80320

== ENCOUNTER → 2023-04-10 | Outpatient (CLI) | payer MEDICARE, OTHER | END | disposition home or self-care (01) | LOC: LABWHC1 10:27 | PROVIDERS: ATTEND Psychiatry & Neurology Neurology | DX: G40.109 Localization-related (focal) (partial) symptomatic epilepsy and epileptic syndromes with simple partial seizures, not intractable, without status epilepticus (principal) | CPT/HCPCS: 36415; 80177; 80235 ==

== ENCOUNTER 2023-07-02 11:05 | Emergency (ER) | payer MEDICARE, OTHER ==
[2023-07-02 11:14] VITALS: BP 142/92; PULSE 89; RESP 16
[2023-07-02] MEDS ORDERED: SODIUM CHLORIDE 0.9% 1,000 ML IV STA (11:27)
[2023-07-02] MEDS ORDERED: KETOROLAC 15 MG/ML 1 ML VIAL IVP STA (11:28)
[2023-07-02] MEDS ORDERED: levETIRAcetam IV 2,000 MG in SODIUM CHLORIDE 0.9% 250 ML IVPB ONE (11:28)
--- NOTE | 2023-07-02 11:36 | ED ---
Seizure HPI - General Chief Complaint: Seizure Stated Complaint: siezure Time Seen by Provider: 07/02/23 11:16 Source: patient, EMS, RN notes reviewed Mode of arrival: EMS Limitations: no limitations - History of Present Illness Initial Comments: This is a 37-year-old male who presents to the emergency department for a seizure. Patient had a seizure earlier today and fell, hitting the back of his head. States that he felt hot before the seizure began. He has a history of epilepsy and stopped taking his Keppra 2 days ago. States that this is because the Keppra is giving him chronic back pain. Most recently had a seizure a couple of months ago. Currently complaining of a headache where the patient hit his head. Denies any nausea or vomiting. Denies any fevers, chills, sore throat, cough, dyspnea, chest pain, palpitations, abdominal pain, nausea, vomiting, or diarrhea. - Related Data Home Medications Medication Instructions Recorded Confirmed Lacosamide [Vimpat] 100 mg PO BID 07/02/23 07/02/23 levETIRAcetam [Keppra] 1,000 mg PO BID 07/02/23 07/02/23 Allergies Allergy/AdvReac Type Severity Reaction Status Date / Time No Known Allergies Allergy Verified 07/02/23 11:49 Review of Systems ROS Statement: Those systems with pertinent positive or pertinent negative responses have been documented in the HPI. ROS Other: All systems not noted in ROS Statement are negative. Past Medical History Past Medical History: Seizure Disorder History of Any Multi-Drug Resistant Organisms: None Reported Past Surgical History: Orthopedic Surgery Past Psychological History: No Psychological Hx Reported Smoking Status: Current some day smoker, Vaper Past Alcohol Use History: Occasional Past Drug Use History: Marijuana General Exam Limitations: no limitations General appearance: alert, in no apparent distress Head exam: Present: other (Small hematoma to the occiput) Eye exam: Present: normal appearance, PERRL, EOMI. Absent: scleral icterus, conjunctival injection, periorbital swelling Respiratory exam: Present: normal lung sounds bilaterally. Absent: respiratory distress, wheezes, rales, rhonchi, stridor Cardiovascular Exam: Present: regular rate, normal rhythm, normal heart sounds. Absent: systolic murmur, diastolic murmur, rubs, gallop, clicks Neurological exam: Present: alert, oriented X3, CN II-XII intact Psychiatric exam: Present: normal affect, normal mood Skin exam: Present: warm, dry, intact, normal color. Absent: rash Course Vital Signs 07/02/23 11:10 Pulse Rate 89 Respiratory 16 Rate Blood Pressure 142/92 O2 Sat by Pulse 97 Oximetry Medical Decision Making - Medical Decision Making This is a 37-year-old male who presents to the emergency department for a seizure. Was pt. sent in by a medical professional or institution? @ -No Did you speak to anyone other than the patient for history? @ -No Did you review nursing and triage notes? @ -Yes, and I agree, it is accurate with regards to the patient's symptoms. Were old charts reviewed? @ -No Differential Diagnosis? @ -Differential Seizure: Recurrent seizure disorder, febrile seizure, alcohol withdrawal, stimulants, meningitis, encephalitis, intercranial hemorrhage, intracranial tumor, stroke, eclampsia, thyrotoxicosis, hypocalcemia, hyponatremia, hypernatremia, hypomagnesemia, psychogenic, this is not meant to be an all-inclusive list. EKG interpreted by me (3pts min.)? @ -EKG interpreted by me demonstrating the following: Sinus rhythm. Ventricular rate 83 beats per minute, AR interval 151 ms, QRS duration 134 ms, QTC 439 ms. X-rays interpreted by me (1pt min.)? @ -Not obtained CT interpreted by me (1pt min.)? @ -Computed tomography scan of the brain and c-spine obtained. My interpretation identifies no evidence of an acute intracranial hemorrhage, skull fracture, or cervical spine fracture. U/S interpreted by me (1pt. min.)? @ -Not obtained What testing was considered but not performed? (CT, X-rays, U/S, labs)? Why? @ -None What meds were considered but not given? Why? @ -None Did you discuss the management of the patient with other professionals? @ -No Did you reconcile home meds? @ -No Was smoking cessation discussed for >3mins.? @ -I discussed smoking cessation for greater than 3 minutes. The risk of smoking were discussed with the patient including but not limited to risks of cancer, stroke, coronary artery disease and COPD. Also discussed with patient were multiple methods of quitting smoking. Lastly we discussed the financial cost of smoking. Was critical care preformed (if so, how long)? @ -No Were there social determinants of health that impacted care today? How? (Homelessness, low income, unemployed, alcoholism, drug addiction, transportation, low edu. Level, literacy, decrease access to med. care, skilled nursing, rehab)? @ -No Was there de-escalation of care discussed even if they declined? (Discuss DNR or withdrawal of care, Hospice)? @ -No What co-morbidities impacted this encounter? (DM, HTN, Smoking, COPD, CAD, C ancer, CVA, Hep., AIDS, mental health diagnosis, sleep apnea, morbid obesity)? @ -Epilepsy Was patient admitted / discharged? @ -Discharged. Lab work obtained and found to be nonactionable. Computed tomography scan of the brain and C-spine revealed a small hematoma to the back of the head without evidence for other acute process. Patient was given IV fluids, Toradol, and a total loading dose of Keppra in the emergency department. Discussed with the patient that the Keppra is not causing his chronic back pain, and he needs to resume taking this due to the risks posed by avoiding this medication, including recurrent breakthrough seizures. Patient is also reminded to avoid driving for 6 months. Recommended ibuprofen and Tylenol as needed for pain relief and close follow-up with his primary care provider and neurologist. Undiagnosed new problem with uncertain prognosis? @ -None Drug Therapy requiring intensive monitoring for toxicity (Heparin, Nitro, Insulin, Cardizem)? @ -None Were any procedures done? @ -None Diagnosis/symptom? @ -Seizure, head injury Acute, or Chronic, or Acute on Chronic? @ -Acute Uncomplicated (without systemic symptoms) or Complicated (systemic symptoms)? @ -Uncomplicated Side effects of treatment? @ -None Exacerbation, Progression, or Severe Exacerbation] @ -Not applicable Poses a threat to life or bodily function? @ -No Return precautions reviewed in depth, the patient is instructed to return to the emergency department with any new, worsening, or concerning symptoms. Patient verbalized understanding. This case was discussed in detail with the attending ED physician Dr. Giles. Presentation, findings, and treatment plan discussed in detail as well. - Lab Data Result diagrams: 07/02/23 11:50 07/02/23 11:50 Lab Results 07/02/23 07/02/23 07/02/23 Range/Units 11:50 11:50 11:50 WBC 5.0 (3.8-10.6) k/uL RBC 4.87 (4.30-5.90) m/uL Hgb 14.9 (13.0-17.5) gm/dL Hct 43.7 (39.0-53.0) % MCV 89.7 (80.0-100.0) fL MCH 30.5 (25.0-35.0) pg MCHC 34.0 (31.0-37.0) g/dL RDW 12.5 (11.5-15.5) % Plt Count 192 (150-450) k/uL MPV 8.1 Neutrophils % 72 % Lymphocytes % 20 % Monocytes % 6 % Eosinophils % 1 % Basophils % 0 % Neutrophils # 3.6 (1.3-7.7) k/uL Lymphocytes # 1.0 (1.0-4.8) k/uL Monocytes # 0.3 (0-1.0) k/uL Eosinophils # 0.0 (0-0.7) k/uL Basophils # 0.0 (0-0.2) k/uL Sodium 140 (137-145) mmol/L Potassium 4.5 (3.5-5.1) mmol/L Chloride 103 (98-107) mmol/L Carbon Dioxide 30 (22-30) mmol/L Anion Gap 7 mmol/L BUN 16 (9-20) mg/dL Creatinine 0.79 (0.66-1.25) mg/dL Est GFR (CKD-EPI)AfAm >90 (>60 ml/min/1.73 sqM) Est GFR (CKD-EPI)NonAf >90 (>60 ml/min/1.73 sqM) Glucose 106 H (74-99) mg/dL Plasma Lactic Acid Collin 2.0 (0.7-2.0) mmol/L Calcium 8.4 (8.4-10.2) mg/dL Magnesium 1.8 (1.6-2.3) mg/dL Total Bilirubin 1.0 (0.2-1.3) mg/dL AST 28 (17-59) U/L ALT 21 (4-49) U/L Alkaline Phosphatase 74 (38-126) U/L Total Protein 7.1 (6.3-8.2) g/dL Albumin 4.4 (3.5-5.0) g/dL Urine Opiates Screen (NotDetected) Ur Oxycodone Screen (NotDetected) Urine Methadone Screen (NotDetected) Ur Propoxyphene Screen (NotDetected) Ur Barbiturates Screen (NotDetected) U Tricyclic Antidepress (NotDetected) Ur Phencyclidine Scrn (NotDetected) Ur Amphetamines Screen (NotDetected) U Methamphetamines Scrn (NotDetected) U Benzodiazepines Scrn (NotDetected) Urine Cocaine Screen (NotDetected) U Marijuana (THC) Screen (NotDetected) Serum Alcohol <10 mg/dL 07/02/23 Range/Units 12:31 WBC (3.8-10.6) k/uL RBC (4.30-5.90) m/uL Hgb (13.0-17.5) gm/dL Hct (39.0-53.0) % MCV (80.0-100.0) fL MCH (25.0-35.0) pg MCHC (31.0-37.0) g/dL RDW (11.5-15.5) % Plt Count (150-450) k/uL MPV Neutrophils % % Lymphocytes % % Monocytes % % Eosinophils % % Basophils % % Neutrophils # (1.3-7.7) k/uL Lymphocytes # (1.0-4.8) k/uL Monocytes # (0-1.0) k/uL Eosinophils # (0-0.7) k/uL Basophils # (0-0.2) k/uL Sodium (137-145) mmol/L Potassium (3.5-5.1) mmol/L Chloride (98-107) mmol/L Carbon Dioxide (22-30) mmol/L Anion Gap mmol/L BUN (9-20) mg/dL Creatinine (0.66-1.25) mg/dL Est GFR (CKD-EPI)AfAm (>60 ml/min/1.73 sqM) Est GFR (CKD-EPI)NonAf (>60 ml/min/1.73 sqM) Glucose (74-99) mg/dL Plasma Lactic Acid Collin (0.7-2.0) mmol/L Calcium (8.4-10.2) mg/dL Magnesium (1.6-2.3) mg/dL Total Bilirubin (0.2-1.3) mg/dL AST (17-59) U/L ALT (4-49) U/L Alkaline Phosphatase (38-126) U/L Total Protein (6.3-8.2) g/dL Albumin (3.5-5.0) g/dL Urine Opiates Screen Not Detected (NotDetected) Ur Oxycodone Screen Not Detected (NotDetected) Urine Methadone Screen Not Detected (NotDetected) Ur Propoxyphene Screen Not Detected (NotDetected) Ur Barbiturates Screen Not Detected (NotDetected) U Tricyclic Antidepress Not Detected (NotDetected) Ur Phencyclidine Scrn Not Detected (NotDetected) Ur Amphetamines Screen Not Detected (NotDetected) U Methamphetamines Scrn Not Detected (NotDetected) U Benzodiazepines Scrn Not Detected (NotDetected) Urine Cocaine Screen Not Detected (NotDetected) U Marijuana (THC) Screen Not Detected (NotDetected) Serum Alcohol mg/dL - Radiology Data Radiology results: report reviewed, image reviewed Disposition Clinical Impression: Generalized seizure, Hematoma of occipital region of scalp, Nicotine dependence Disposition: HOME SELF-CARE Instructions (If sedation given, give patient instructions): Seizure/Epilepsy Discharge Instructions & Follow-Up Additional Instructions: Return to the emergency department with any new, worsening, or concerning symptoms. Alternate with ibuprofen and Tylenol as needed for pain relief. You need to resume your Keppra, as it is not giving you back pain. Avoid driving for 6 months. Follow up with your primary care provider in 1-2 days. Is patient prescribed a controlled substance at d/c from ED?: No Referrals: Sagar Serrato MD [Primary Care Provider] - 1-2 days
[2023-07-02 12:09] LABS: Basophils % (A) 0 %; Eosinophils % (A) 1 %; HCT 43.7 % (39.0-53.0); HGB 14.9 gm/dL (13.0-17.5); Lymphocytes % (A) 20 %; MCH 30.5 pg (25.0-35.0); MCV 89.7 fL (80.0-100.0); Mean Platelet Volume 8.1; Monocytes # (A) 0.3 k/uL (0-1.0); Monocytes % (A) 6 %; Neutrophils # (A) 3.6 k/uL (1.3-7.7); Neutrophils % (A) 72 %; Platelet Count 192 k/uL (150-450); RBC 4.87 m/uL (4.30-5.90); RDW 12.5 % (11.5-15.5)
[2023-07-02 12:18] LABS: Potassium 4.5 mmol/L (3.5-5.1)
[2023-07-02 12:19] LABS: ALT 21 U/L (4-49); AST 28 U/L (17-59); African American GFR (CKD) >90 (>60 ml/min/1.73 sqM); Albumin 4.4 g/dL (3.5-5.0); Alcohol <10 mg/dL; Alkaline Phosphatase 74 U/L (38-126); Anion Gap 7 mmol/L; Blood Urea Nitrogen 16 mg/dL (9-20); Calcium 8.4 mg/dL (8.4-10.2); Carbon Dioxide 30 mmol/L (22-30); Chloride 103 mmol/L (98-107); Glucose 106 mg/dL (74-99); Magnesium 1.8 mg/dL (1.6-2.3); Non-African American GFR(CKD) >90 (>60 ml/min/1.73 sqM); Sodium 140 mmol/L (137-145); Total Protein 7.1 g/dL (6.3-8.2)
--- NOTE | 2023-07-02 12:25 | CT ---
EXAMINATION TYPE: CT brain cspine wo con CT DLP: 1396 mGycm, Automated exposure control for dose reduction was used. DATE OF EXAM: 07/02/2023 12:05 PM COMPARISON: CT brain 07/29/2017, MRI brain 09/02/2010. CLINICAL INDICATION:Male, 37 years old with history of Seizure, head injury; Seizure, head injury TECHNIQUE: Brain: Multiple axial CT images of the brain were obtained without IV contrast. Cspine: Axial CT images from the skull base to the inferior aspect of T2 we obtained without intraven ous contrast. Coronal and sagittal reformatted images were also reviewed. FINDINGS: Brain: Extra-axial spaces: No abnormal extra-axial fluid collections. Ventricular system: Within normal limits Cerebral parenchyma: No acute intraparenchymal hemorrhage or mass effect. The ordonez-white junction is well differentiated. Cerebellum: Unremarkable. Mass effect: No evidence of midline shift. Intracranial vasculature: unremarkable Soft tissues: Small right posterior scalp contusion. Calvarium/osseous structures: No depressed skull fracture. Paranasal sinuses and mastoid air cells: Clear. Visualized orbits: Orbital contents are intact. Cervical spine: Fracture: None. Osseous structures: Mild multilevel degenerative disease. Vertebral alignment: Within normal limits. Spinal canal/Neural Foramina: Disc osteophyte complexes at C5-C6 with at least mild spinal canal sten osis. Broad-based disc bulge at C4-C5 with at least mild spinal canal stenosis. No evidence for signi ficant neural foraminal stenosis. Neck soft tissues: Prevertebral soft tissues are within normal limits. Other: The airway is patent. The lung apices are clear. IMPRESSION: 1. No acute intracranial process. 2. Small right posterior scalp contusion. 3. No evidence of cervical spine fracture. 4. Mild multilevel degenerative disc disease.
[2023-07-02 12:51] LABS: Amphetamine Screen,Urine Not Detected (NotDetected); Barbiturate Screen,Urine Not Detected (NotDetected); Benzodiazepines Screen,Urine Not Detected (NotDetected); Cocaine Screen,Urine Not Detected (NotDetected); Methadone Screen, Urine Not Detected (NotDetected); Opiate Screen,Urine Not Detected (NotDetected); Oxycodone Screen, Urine Not Detected (NotDetected); Phencyclidine Screen,Urine Not Detected (NotDetected); Tricyclic Antidepressant,Urine Not Detected (NotDetected); Urn Cannabinoid Scrn Not Detected (NotDetected)
[2023-07-02] MEDS ORDERED: ACET/COD 300 MG/30 MG STARTER PACK 6 TAB BTL PO STA (13:07)
[2023-07-02] MEDS ORDERED: IBUPROFEN 600 MG STARTER PACK 4 TAB BTL PO STA (13:07)
== END 2023-07-02 13:18 | disposition home or self-care (01) ==
LOC: EC 11:05
DX: S00.03XA Contusion of scalp, initial encounter (principal); G40.409 Other generalized epilepsy and epileptic syndromes, not intractable, without status epilepticus; F17.290 Nicotine dependence, other tobacco product, uncomplicated; F12.90 Cannabis use, unspecified, uncomplicated; W01.198A Fall on same level from slipping, tripping and stumbling with subsequent striking against other object, initial encounter
CPT/HCPCS: 99285 ×2; 96374; 96375 ×2; 96361 ×2; 99406 ×2; 36415; 93005; 80053; 83605; 83735; 85025; 80306; 72125; 70450; 96365; G0480; J1953; J1885; 80320

== ENCOUNTER → 2024-01-28 | Outpatient (CLI) | payer MEDICARE, OTHER | END | disposition home or self-care (01) | LOC: LABWHC1 10:29 | PROVIDERS: ATTEND Psychiatry & Neurology Neurology | DX: G40.109 Localization-related (focal) (partial) symptomatic epilepsy and epileptic syndromes with simple partial seizures, not intractable, without status epilepticus (principal) | CPT/HCPCS: 36415; 80177 ==

== ENCOUNTER → 2024-04-07 | Outpatient (CLI) | payer MEDICARE, OTHER | END | disposition home or self-care (01) | LOC: LABWHC1 10:17 | PROVIDERS: ATTEND Psychiatry & Neurology Neurology | DX: G40.109 Localization-related (focal) (partial) symptomatic epilepsy and epileptic syndromes with simple partial seizures, not intractable, without status epilepticus (principal) | CPT/HCPCS: 36415; 80177 ==

== ENCOUNTER → 2024-10-23 | Outpatient (CLI) | payer MEDICARE, OTHER | END | disposition home or self-care (01) | LOC: LABWHC1 13:50 | PROVIDERS: ATTEND Psychiatry & Neurology Neurology | DX: G40.109 Localization-related (focal) (partial) symptomatic epilepsy and epileptic syndromes with simple partial seizures, not intractable, without status epilepticus (principal) | CPT/HCPCS: 36415; 80177 ==

== ENCOUNTER 2024-10-28 19:02 | Emergency (ER) | payer MEDICARE, OTHER ==
[2024-10-28 19:17] VITALS: RESP 18
[2024-10-28] MEDS: SODIUM CHLORIDE 0.9% 1,000 ML IV STA (20:06)
[2024-10-28] MEDS: levETIRAcetam IV 500 MG/5 ML VIAL IVP STA (20:08)
[2024-10-28 20:16] LABS: Basophils % (A) 0 %; Eosinophils % (A) 1 %; HCT 45.1 % (39.0-53.0); HGB 14.5 gm/dL (13.0-17.5); Lymphocytes # (A) 1.5 k/uL (1.0-4.8); Lymphocytes % (A) 24 %; MCH 29.1 pg (25.0-35.0); MCHC 32.1 g/dL (31.0-37.0); MCV 90.5 fL (80.0-100.0); Mean Platelet Volume 7.3; Monocytes # (A) 0.4 k/uL (0-1.0); Monocytes % (A) 6 %; Neutrophils # (A) 4.2 k/uL (1.3-7.7); Neutrophils % (A) 67 %; Platelet Count 264 k/uL (150-450); RBC 4.98 m/uL (4.30-5.90); RDW 12.1 % (11.5-15.5); WBC 6.3 k/uL (3.8-10.6)
[2024-10-28 20:28] LABS: ALT 72 U/L (4-49); AST 41 U/L (17-59); African American GFR (CKD) >90 (>60 ml/min/1.73 sqM); Albumin 4.9 g/dL (3.5-5.0); Alkaline Phosphatase 77 U/L (38-126); Anion Gap 5 mmol/L; Blood Urea Nitrogen 18 mg/dL (9-20); Carbon Dioxide 33 mmol/L (22-30); Chloride 99 mmol/L (98-107); Glucose 160 mg/dL (74-99); Magnesium 1.9 mg/dL (1.6-2.3); Non-African American GFR(CKD) >90 (>60 ml/min/1.73 sqM); Potassium 4.3 mmol/L (3.5-5.1); Sodium 137 mmol/L (137-145); Total Bilirubin 0.9 mg/dL (0.2-1.3); Total Protein 7.5 g/dL (6.3-8.2)
--- NOTE | 2024-10-28 21:02 | ED ---
General Adult HPI - General Chief complaint: Seizure Stated complaint: Seizure Time Seen by Provider: 10/28/24 19:32 Source: patient, EMS, RN notes reviewed, old records reviewed Mode of arrival: EMS - History of Present Illness Initial comments: 38-year-old male presents emergency department for breakthrough seizure. Has a history of seizures. Is on Keppra 1000 mg twice daily. States he has not missed any doses of his medication. Denies any injury from his seizure. Does not drive or operate motor vehicles. Was brought here by EMS. Apparently patient had generalized tonic-clonic movements for 3 minutes. Currently acting his normal baseline self. Does state he bit the left side of his tongue. Otherwise has no other acute complaints. Presents for further evaluation. States the only antiepileptic medication he is currently on is Keppra. - Related Data Home Medications Medication Instructions Recorded Confirmed Lacosamide [Vimpat] 100 mg PO BID 07/02/23 07/02/23 levETIRAcetam [Keppra] 1,000 mg PO BID 07/02/23 07/02/23 Allergies Allergy/AdvReac Type Severity Reaction Status Date / Time No Known Allergies Allergy Verified 10/28/24 19:18 Review of Systems ROS Statement: Those systems with pertinent positive or pertinent negative responses have been documented in the HPI. Review of Systems: CONST: Denies fever EYES: Denies blurry vision ENT: Denies nasal congestion C/V: Denies Chest pain RESP: Denies shortness of breath GI: Denies abdominal pain : Denies dysuria SKIN: Denies rash. MSK: Denies joint pain. NEURO: Denies headache ROS Other: All systems not noted in ROS Statement are negative. Past Medical History Past Medical History: Seizure Disorder History of Any Multi-Drug Resistant Organisms: None Reported Past Surgical History: Orthopedic Surgery Past Psychological History: No Psychological Hx Reported Smoking Status: Current some day smoker, Vaper Past Alcohol Use History: Occasional Past Drug Use History: Marijuana General Exam - General Exam Comments Initial Comments: General: Appears in no acute distress. HEAD: Normal with no signs of head trauma. EYES: PERRLA, EOMI, conjunctiva normal, no discharge. ENT: Hearing grossly intact, normal oropharynx. RESPIRATORY: Clear breath sounds bilaterally. No wheezes, rales, or rhonchi. C/V: Regular rate and rhythm. S1 and S2 auscultated, no edema, peripheral pulses 2+ and intact throughout ABD: Abd is soft, nontender, nondistended EXT: Normal range of motion, no obvious deformity SKIN: No rashes or lesions observed on exposed skin. NEURO: Alert and oriented x 4. Cranial nerves II-XII intact. No focal sensory or strength deficits. Course Vital Signs 10/28/24 10/28/24 19:11 21:20 Temperature 98.8 F 98.1 F Pulse Rate 100 79 Respiratory 18 18 Rate Blood Pressure 126/90 123/83 O2 Sat by Pulse 95 96 Oximetry Medical Decision Making - Medical Decision Making Was pt. sent in by a medical professional or institution (, [facility], [facility], urgent care, hospital, or senior living...) When possible be specific @ -No Did you speak to anyone other than the patient for history (EMS, parent, family, police, friend...)? What history was obtained from this source @ -No Did you review nursing and triage notes (agree or disagree)? Why? @ -I reviewed and agree with nursing and triage notes Were old charts reviewed (outside hosp., previous admission, EMS record, old EKG, old radiological studies, urgent care reports/EKG's, senior living records)? Report findings @ -Reviewed old EKG which showed no obvious acute findings when compared with EKG from June 2023 Differential Diagnosis (chest pain, altered mental status, abdominal pain women, abdominal pain men, vaginal bleeding, weakness, fever, dyspnea, syncope, headache, dizziness, GI bleed, back pain, seizure, CVA, palpatations, mental health, musculoskeletal)? @ -Breakthrough seizure, electrolyte abnormality, dehydration. This list is not all inclusive. EKG interpreted by me (3pts min.). @ -As above X-rays interpreted by me (1pt min.). @ -None done CT interpreted by me (1pt min.). @ -None done U/S interpreted by me (1pt. min.). @ -None done What testing was considered but not performed or refused? (CT, X-rays, U/S, labs)? Why? @ -None What meds were considered but not given or refused? Why? @ -None Did you discuss the management of the patient with other professionals (professionals i.e. , [facility], [facility], lab, RT, psych nurse, social media designer, engraver pantograph, teacher, head correction officer, pillowcase maker)? Give summary @ -No Was smoking cessation discussed for >3mins.? @ -No Was critical care preformed (if so, how long)? @ -No Were there social determinants of health that impacted care today? How? (Homelessness, low income, unemployed, alcoholism, drug addiction, transportation, low edu. Level, literacy, decrease access to med. care, assisted, rehab)? @ -No Was there de-escalation of care discussed even if they declined (Discuss DNR or withdrawal of care, Hospice)? DNR status @ -No What co-morbidities impacted this encounter? (DM, HTN, Smoking, COPD, CAD, Cancer, CVA, ARF, Chemo, Hep., AIDS, mental health diagnosis, sleep apnea, morbid obesity)? @ -Epilepsy Was patient admitted / discharged? Hospital course, mention meds given and route, prescriptions, significant lab abnormalities, going to OR and other pertinent info. @ -Based on patient's presentation and physical exam, presents emergency department complaining of breakthrough seizure. Has a history of epilepsy. States he is compliant with Keppra. Currently no postictal state. Patient has an abrasion to left side of the tongue. No other acute complaints at this time. Vitals are within acceptable limits. We will obtain general workup as well as screening EKG. Patient in agreement this plan. Vitals within acceptable limits. Laboratory studies are all within acceptable limits as well. EKG unremarkable. I discussed results with the patient. He was observed for 2 hours here in the department with no further seizure activity. Would like to go home and I believe this to disease is the normal. Patient will be discharged home at this time. Strict return precautions discussed. Patient did receive a dose of 1500 mg of IV Keppra prior to discharge. Discussed he cannot drive or operate heavy machinery for 6 months. He was in agreement this plan. States he does not require refill for his Keppra. I instructed the patient to follow up with their PCP in the next 1-3 days.. I explained that the patient should return to the emergency department if they experience any worsening symptoms. Strict return precautions were discussed with the patient. The patient expressed understanding of these instructions. I answered all questions that the patient had. The patient was discharged home in good condition with their prescriptions and follow up information. Undiagnosed new problem with uncertain prognosis? @ -No Drug Therapy requiring intensive monitoring for toxicity (Heparin, Nitro, Insulin, Cardizem)? @ -No Were any procedures done? @ -No Diagnosis/symptom? @ -Breakthrough seizure Acute, or Chronic, or Acute on Chronic? @ -Acute on chronic Uncomplicated (without systemic symptoms) or Complicated (systemic symptoms)? @ -Complicated Side effects of treatment? @ -No Exacerbation, Progression, or Severe Exacerbation? @ -No Poses a threat to life or bodily function? How? (Chest pain, [place], OR, pneumonia, PE, COPD, DKA, ARF, appy, cholecystitis, CVA, Diverticulitis, Homicidal, Suicidal, threat to staff... and all critical care pts) @ -Unlikely at this time - Lab Data Result diagrams: 10/28/24 20:03 10/28/24 20:03 Lab Results 10/28/24 10/28/24 Range/Units 20:03 20:03 WBC 6.3 (3.8-10.6) k/uL RBC 4.98 (4.30-5.90) m/uL Hgb 14.5 (13.0-17.5) gm/dL Hct 45.1 (39.0-53.0) % MCV 90.5 (80.0-100.0) fL MCH 29.1 (25.0-35.0) pg MCHC 32.1 (31.0-37.0) g/dL RDW 12.1 (11.5-15.5) % Plt Count 264 (150-450) k/uL MPV 7.3 Neutrophils % 67 % Lymphocytes % 24 % Monocytes % 6 % Eosinophils % 1 % Basophils % 0 % Neutrophils # 4.2 (1.3-7.7) k/uL Lymphocytes # 1.5 (1.0-4.8) k/uL Monocytes # 0.4 (0-1.0) k/uL Eosinophils # 0.0 (0-0.7) k/uL Basophils # 0.0 (0-0.2) k/uL Sodium 137 (137-145) mmol/L Potassium 4.3 (3.5-5.1) mmol/L Chloride 99 (98-107) mmol/L Carbon Dioxide 33 H (22-30) mmol/L Anion Gap 5 mmol/L BUN 18 (9-20) mg/dL Creatinine 0.97 (0.66-1.25) mg/dL Est GFR (CKD-EPI)AfAm >90 (>60 ml/min/1.73 sqM) Est GFR (CKD-EPI)NonAf >90 (>60 ml/min/1.73 sqM) Glucose 160 H (74-99) mg/dL Calcium 9.0 (8.4-10.2) mg/dL Magnesium 1.9 (1.6-2.3) mg/dL Total Bilirubin 0.9 (0.2-1.3) mg/dL AST 41 (17-59) U/L ALT 72 H (4-49) U/L Alkaline Phosphatase 77 (38-126) U/L Total Protein 7.5 (6.3-8.2) g/dL Albumin 4.9 (3.5-5.0) g/dL - EKG Data -: EKG Interpreted by Me EKG Comments: 12-lead Electrocardiogram Interpretation Note EKG was reviewed and interpreted by myself. 12-lead ECG performed at 1948 is interpreted by me as revealing normal sinus rhythm at a rate of 80 beats per minute. [place] is normal. [place] interval is 154 ms, QRS durations 116 ms, QTc is 410 ms. Patient does have J-point elevation in V2 that is isolated, and appears chronic when seen from June 2023. The right bundle branch block pattern.. There were no ST or T wave abnormalities to suggest myocardial ischemia or injury. R wave progression across the precordium was delayed. By my interpretation this EKG is non-diagnostic for acute ischemia. Disposition Clinical Impression: Breakthrough seizure Disposition: HOME SELF-CARE Condition: Good Instructions (If sedation given, give patient instructions): Seizure/Epilepsy Discharge Instructions & Follow-Up Additional Instructions: No operating heavy machinery or motor vehicles for the next 6 months due to your breakthrough seizure. Continue with compliance for antiepileptic medications. Return if any worsening symptoms. Follow-up with your neurologist or PCP in the next 1 to 3 days. Is patient prescribed a controlled substance at d/c from ED?: No Referrals: Susana Escudero MD [Primary Care Provider] - 1-2 days Time of Disposition: 21:00
[2024-10-28 21:23] VITALS: BP 123/83; PULSE 79; TEMP 98.1
== END 2024-10-28 21:20 | disposition home or self-care (01) ==
LOC: EC 19:02
DX: G40.909 Epilepsy, unspecified, not intractable, without status epilepticus (principal); F17.290 Nicotine dependence, other tobacco product, uncomplicated
CPT/HCPCS: 36415; 93005; 80053; 83735; 85025; 99284; 96374; 96361; J1953

== ENCOUNTER → 2024-11-20 | Outpatient (CLI) | payer MEDICARE, OTHER | END | disposition home or self-care (01) | LOC: LABWHC1 11:21 | PROVIDERS: ATTEND Psychiatry & Neurology Neurology | DX: G40.109 Localization-related (focal) (partial) symptomatic epilepsy and epileptic syndromes with simple partial seizures, not intractable, without status epilepticus (principal) | CPT/HCPCS: 36415; 80177 ==

== ENCOUNTER 2025-03-03 15:21 | Emergency (ER) | payer MEDICARE, OTHER ==
[2025-03-03 15:30] VITALS: RESP 18; TEMP 98.6
[2025-03-03] MEDS ORDERED: levETIRAcetam IV 500 MG/5 ML VIAL IVP STA (15:57)
[2025-03-03] MEDS ORDERED: SODIUM CHLORIDE 0.9% 1,000 ML IV ONE (15:57)
[2025-03-03 16:00] LABS: Glucose,Whole Blood 139 mg/dL (70-110)
--- NOTE | 2025-03-03 16:09 | ED ---
General Adult HPI - General Chief complaint: Seizure Stated complaint: seizure Time Seen by Provider: 03/03/25 15:35 Source: patient, EMS Mode of arrival: EMS Limitations: no limitations - History of Present Illness Initial comments: Patient is a 39-year-old male past medical history of epilepsy on Keppra presenting today for seizure. States he was at [facility] and had a seizure. Was like his usual seizures. Did bite the side of his tongue. No urinary incontinence. Denies head injury. States he is compliant with his medications. No recent changes to medications. Endorses infrequent alcohol use but denies any daily alcohol use. No history alcohol withdrawal seizures. No fevers, no neck pain, no changes in vision, no slurred speech, chest pain, shortness of breath. Denies illicit drug use. Has a appointment with his neurologist in March. - Related Data Home Medications Medication Instructions Recorded Confirmed Lacosamide [Vimpat] 100 mg PO BID 07/02/23 07/02/23 levETIRAcetam [Keppra] 1,000 mg PO BID 07/02/23 07/02/23 Allergies Allergy/AdvReac Type Severity Reaction Status Date / Time No Known Allergies Allergy Verified 10/28/24 19:18 Review of Systems ROS Statement: Those systems with pertinent positive or pertinent negative responses have been documented in the HPI. ROS Other: All systems not noted in ROS Statement are negative. Past Medical History Past Medical History: Seizure Disorder History of Any Multi-Drug Resistant Organisms: None Reported Past Surgical History: Orthopedic Surgery Past Psychological History: No Psychological Hx Reported Smoking Status: Current some day smoker, Vaper Past Alcohol Use History: Occasional Past Drug Use History: Marijuana General Exam - General Exam Comments Initial Comments: PE: CONSTITUTIONAL: No apparent distress, well appearing SKIN: Warm, dry, no jaundice, hives or petechiae EYES: Pupils are equally round, extraocular movements intact without nystagmus, clear conjunctiva, non-icteric sclera HENT: Normocephalic, atraumatic, moist mucus membranes, oropharynx clear without exudates, small abrasion to side of tongue, no active bleeding NECK: , Full range of motion, normal appearance no midline spinal tenderness palpation PULMONARY: Clear to auscultation without wheezes, rhonchi, or rales, normal excursion, no accessory muscle use and no stridor CARDIOVASCULAR: Regular rate, rhythm, normal S1 and S2. No appreciated murmurs, rubs or gallops. Extremities are well-perfused GASTROINTESTINAL: Soft, active bowel sounds throughout, non-tender, non- distended, no palpable masses, no rebound or guarding. No hepatosplenomegaly MUSCULOSKELETAL: Extremities have no gross deformity, no edema, redness, or swelling. No calf swelling NEUROLOGIC:_a/o x 3, GCS 15, normal mentation and speech. Moves all extremities x 4 without motor or sensory deficit, no facial droop, speech is clear, extraocular movements intact PSYCHIATRIC:_normal mood and affect, thought process is clear and linear Limitations: no limitations Course Vital Signs 03/03/25 03/03/25 15:23 16:19 Temperature 98.6 F Pulse Rate 105 H 102 H Respiratory 18 18 Rate Blood Pressure 145/100 135/100 O2 Sat by Pulse 98 98 Oximetry EKG Findings - EKG Comments: EKG Findings:: Sinus rhythm, rate 99 bpm HI interval 131 ms QT/QTc within normal limits, normal axis, no clear ST elevations or depressions, T wave flattening lead aVL, compared to EKG performed on 09/29/11, overall unchanged from prior, no new ischemic changes Medical Decision Making - Medical Decision Making Was pt. sent in by a medical professional or institution (, PA, ENGAGEMENT EXECUTIVE, urgent care, hospital, or snf...) When possible be specific @ -No Did you speak to anyone other than the patient for history (EMS, parent, family, police, friend...)? What history was obtained from this source @ -No Did you review nursing and triage notes (agree or disagree)? Why? @ -I reviewed and agree with nursing and triage notes Were old charts reviewed (outside hosp., previous admission, EMS record, old EKG, old radiological studies, urgent care reports/EKG's, snf records)? Report findings @ -Medical records reviewed patient last here for breakthrough seizure in October 2024, On review of that visit, patient had blood work and EKG done at that time, EKG did not show any new ischemic changes at that time, labs were re portedly within normal limits, during that visit patient received a dose of 1500 mg IV Keppra prior to discharge Differential Diagnosis (chest pain, altered mental status, abdominal pain women, abdominal pain men, vaginal bleeding, weakness, fever, dyspnea, syncope, headache, dizziness, GI bleed, back pain, seizure, CVA, palpatations, mental health, musculoskeletal)? Differential Seizure: Recurrent seizure disorder,alcohol withdrawal, stimulants, meningitis, encephalitis, intercranial hemorrhage, intracranial tumor, stroke,thyrotoxicosis, hypocalcemia, hyponatremia, hypernatremia, hypomagnese bill, psychogenic, this is not meant to be an all-inclusive list. EKG interpreted by me (3pts min.). @ -As above X-rays interpreted by me (1pt min.). @ -None done CT interpreted by me (1pt min.). @ -None done U/S interpreted by me (1pt. min.). @ -None done What testing was considered but not performed or refused? (CT, X-rays, U/S, labs)? Why? @ -None What meds were considered but not given or refused? Why? Keppra bolus was considered however patient declined Did you discuss the management of the patient with other professionals (professionals i.e. , PA, ENGAGEMENT EXECUTIVE, lab, RT, psych nurse, social services, plastics factory worker, teacher, audit officer, cyanide case hardener)? Give summary @ -No Was smoking cessation discussed for >3mins.? @ -No Was critical care preformed (if so, how long)? @ -No Were there social determinants of health that impacted care today? How? (Homelessness, low income, unemployed, alcoholism, drug addiction, transportation, low edu. Level, literacy, decrease access to med. care, assisted, rehab)? @ -No Was there de-escalation of care discussed even if they declined (Discuss DNR or withdrawal of care, Hospice)? @ -No What co-morbidities impacted this encounter? (DM, HTN, Smoking, COPD, CAD, C ancer, CVA, ARF, Chemo, Hep., AIDS, mental health diagnosis, sleep apnea, morbid obesity)? @Seizure disorder Was patient admitted / discharged? Hospital course, mention meds given and route, prescriptions, significant lab abnormalities, going to OR and other pertinent info. @Discharged [id number] male presenting for breakthrough seizure. Similar to prior seizures. Denies head injury. Is AO x 4 on arrival without focal neurologic deficits. Blood glucose 139. EKG appears unchanged from prior obtained 10/28/2024. I did order a saline bolus and Keppra bolus for the patient as well however he declined to these and preferred discharge at this time. Patient was discharged gets medical advice. He was alert and competent to make his own medical decisions. I did discuss with him that according to [facility] law he cannot drive for the next 6 months due to his seizure. Patient was understanding of this. Undiagnosed new problem with uncertain prognosis? @ -No Drug Therapy requiring intensive monitoring for toxicity (Heparin, Nitro, Insulin, Cardizem)? @ -No Were any procedures done? @ -No Diagnosis/symptom? @ -Seizure Acute, or Chronic, or Acute on Chronic? @Acute Uncomplicated (without systemic symptoms) or Complicated (systemic symptoms)? @ -Uncomplicated Side effects of treatment? @ -No Exacerbation, Progression, or Severe Exacerbation? @ -No Poses a threat to life or bodily function? How? (Chest pain, [place], [place], pneumonia, PE, COPD, DKA, ARF, appy, cholecystitis, CVA, Diverticulitis, Homicidal, Suicidal, threat to staff... and all critical care pts) @Unlikely at this time - Lab Data Lab Results 03/03/25 Range/Units 15:57 POC Glucose (mg/dL) 139 H (70-110) mg/dL POC Glu Seismic Prospecting Supervisor ID Keyona Delcid Disposition Clinical Impression: Breakthrough seizure Disposition: LEFT AGAINST MEDICAL ADVICE Condition: Undetermined Instructions (If sedation given, give patient instructions): Seizure/Epilepsy Discharge Instructions & Follow-Up Additional Instructions: [facility] law states that you are unable to drive or operate heavy machinery for 6 months after seizure or syncopal event. Please follow-up with your PCP for clearance. Please monitor yourself closely for new, changing or worsening symptoms, 2 or more seizures in 1 day, change in the frequency or type of seizures you are having, persistent confusion after seizure, head injury, new changes in vision, numbness or weakness after a seizure, fever, inability to tolerate/keep down fluids or your medications, inability to follow up with outpatient providers as instructed and should you experience these symptoms or should you have any further concerns for your wellbeing please return to the ED or call 911 immediately. PLEASE call your primary care physician as soon as possible to arrange / discuss plan for followup appointment. Appointment in the next 1-3 days is strongly encouraged if possible. PLEASE let us know here before you leave if there is anything further we can do to be of any assistance. Take care and feel Better! Is patient prescribed a controlled substance at d/c from ED?: No Referrals: Sagar Serrato MD [Primary Care Provider] - 1-2 days
[2025-03-03 16:20] VITALS: BP 135/100; PULSE 102
== END 2025-03-03 16:20 | disposition left against medical advice (07) ==
LOC: EC 15:21
DX: G40.909 Epilepsy, unspecified, not intractable, without status epilepticus (principal); F17.290 Nicotine dependence, other tobacco product, uncomplicated; Z53.29 Procedure and treatment not carried out because of patient's decision for other reasons; Z79.899 Other long term (current) drug therapy
CPT/HCPCS: 36415; 99285